=== PATIENT | female | born 1970 | race Caucasian/White ===

== ENCOUNTER 2016-04-09 03:25 | Emergency (ER) ==
--- NOTE | 2016-04-09 03:34 | ED.PDOC ---
General ED Provider: Dr. CRISTINO AYERS Chief Complaint: Shoulder Pain/Injury Stated Complaint: Patient states she woke up with left shouler pain this morning. Has not taken any medication for the pain. states she cannot afford Tylenol but admits to smoking. Time Seen by Physician: 03:42 Information Source: Patient Exam Limitations: No limitations Nursing and Triage Documentation Reviewed and Agree: Yes Musculoskeletal Complaint Exam - Shoulder Pain Complaint/Exam Mechanism of Injury: Reports: No known trauma Onset/Duration: 1 day Symptoms Are: Still present Timing: Intermittent Initial Severity: Mild Current Severity: Mild Location: Reports: Diffuse Character: Reports: Dull, Aching Alleviating: Reports: Rest Aggravating: Reports: Movement Associated Signs and Symptoms: Denies: Swelling, Redness, Bruising, Fever, Weakness, Numbness, Tingling Non-Orthopedic Risk Factors: Reports: None DVT Risk Factors: Reports: None Septic Arthritis Risk Factors: Reports: None Related Surgical History: Reports: None Shoulder Findings: Absent: Swelling, Ecchymosis, Abnormal contour, Rotation, Ligamentous instability, Laceration, Erythema, Warmth, Blisters, Other joint pain, Foreign body, Adson's Sign Tenderness: Present: Rotator cuff muscles. Absent: Clavicle Limited Range of Motion: Absent: Abduction, Adduction, Flexion, Extension, Internal rotation, External rotation, Rotator cuff muscles, Rotator cuff insertion Differential Diagnoses: Sprain, Strain Review of Systems - Review Of Systems Constitutional: Reports: No symptoms Eyes: Reports: No symptoms Ears, Nose, Mouth, Throat: Reports: No symptoms Respiratory: Reports: No symptoms Cardiac: Reports: No symptoms GI: Reports: No symptoms : Reports: No symptoms Musculoskeletal: Reports: Joint pain (shoulder ) Skin: Reports: No symptoms Neurological: Reports: No symptoms Endocrine: Reports: No symptoms Hematologic/Lymphatic: Reports: No symptoms All Other Systems: Reviewed and Negative Past Medical History - Past Medical History Previously Healthy: No Endocrine: Reports: None Cardiovascular: Reports: CAD, AR, Hypertension (Uncontrolled ), CHF Respiratory: Reports: COPD, Asthma, Pneumonia Hematological: Reports: Anemia Gastrointestinal: Reports: PUD, GERD Genitourinary: Reports: Kidney stones, CKD Neuro/Psych: Reports: TIA, 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 Denies: Hysterectomy (D&C) - Family History Family History: Reports: Unknown - Social History Smoking Status: Current every day smoker Hx Substance Use: Yes (alcohol) Alcohol Screening: None Physical Exam - Physical Exam Appearance: Well-appearing, No pain distress Neck: Supple Respiratory: Airway patent, Breath sounds clear, Breath sounds equal, Respirations nonlabored Cardiovascular: RRR, Pulses normal, No rub, No murmur GI/: Soft, Nontender, No masses, Bowel sounds normal, No Organomegaly Musculoskeletal: Normal strength, ROM intact, No edema, No calf tenderness Skin: Warm, Dry, Normal color Neurological: Sensation intact, Motor intact Critical Care Note - Critical Care Note Total Time (mins): 0 Course - Course Vital Signs: Temp Pulse Resp BP Pulse Ox 04/09/16 03:33 98.7 F 80 18 175/112 H 99 Departure - Departure Time of Disposition: 03:46 Disposition: HOME SELF-CARE Discharge Problem: Shoulder strain Instructions: Rotator Cuff Injury (ED) Condition: Fair Pt referred to PMD for follow-up: Yes Additional Instructions: Take over the counter Tylenol as needed for pain Follow up wth PCP in 2 days Allergies/Adverse Reactions: Allergies aspirin Adverse Reaction (Verified 04/09/16 03:41) Penicillins Adverse Reaction (Verified 04/09/16 03:41) Home Medications: Ambulatory Orders Carvedilol [Coreg] 25 mg PO DAILY 01/29/15 Calcium Acetate 667 mg PO DIRECTED 02/19/15 Hydralazine HCl 25 mg PO Q8H 03/27/15 Clonidine HCl 0.2 mg PO BID 09/14/15 Amlodipine Besylate 10 mg PO DAILY 10/16/15 Ranitidine HCl [Zantac] 150 mg PO BIDAC 11/03/15 Cholecalciferol (Vitamin D3) [Vitamin D3] 2,000 unit PO DAILY 12/03/15 Acetaminophen [Tylenol Arthritis] 650 mg PO Q4-6H PRN #100 tablet.er 12/04/15 Pantoprazole Sodium [Protonix] 40 mg PO DAILY #30 tablet.dr 02/29/16 Albuterol Sulfate [Proair Hfa] 2 puff IH Q6H PRN #1 inhaler 03/04/16 Disposition Discussed With: Patient
[2016-04-09 03:39] VITALS: BP 175/112; TEMP 98.7; BMI 22.8
== END 2016-04-09 03:55 | disposition home or self-care (01) ==
LOC: ED 03:25
DX: S46.012A Strain of muscle(s) and tendon(s) of the rotator cuff of left shoulder, initial encounter (principal); I10 Essential (primary) hypertension; F17.210 Nicotine dependence, cigarettes, uncomplicated
CPT/HCPCS: 99283

== ENCOUNTER 2016-04-11 22:15 | Outpatient (CLI) | END 2016-04-11 22:16 | disposition home or self-care (01) | LOC: AMBL 22:15 | PROVIDERS: ATTEND Emergency Medicine | DX: R07.9 Chest pain, unspecified (principal); R06.00 Dyspnea, unspecified; J18.9 Pneumonia, unspecified organism ==

== ENCOUNTER 2016-04-15 20:27 | Emergency (ER) ==
[2016-04-15 20:33] VITALS: BP 138/97; TEMP 97.3; BMI 23.4
--- NOTE | 2016-04-15 20:58 | ED.PDOC ---
General ED Provider: Dr. INDIGO NICHOLSON-ER Chief Complaint: Extremity Swelling/Pain Stated Complaint: i had a heart cath 3 days ago--its hurting and swelling and going down my leg Time Seen by Physician: 20:56 Mode of Arrival: Walk-In Information Source: Patient Exam Limitations: No limitations Nursing and Triage Documentation Reviewed and Agree: Yes Musculoskeletal Complaint Exam - Lower Extremity Complaint/Exam Location of Pain: Reports: Right, Thigh Mechanism of Injury: Reports: No known trauma, Other (cardiac cath) Onset/Duration: 24hrsw Symptoms Are: Still present Onset of Pain: Reports: Immediate Initial Severity: Mild Current Severity: Mild Location: Reports: Discrete (right thigh) Character: Reports: Dull, Aching, Throbbing Alleviating: Reports: None Aggravating: Reports: Movement, Weight bearing, Prolonged standing Able to Bear Weight: Yes Associated Signs and Symptoms: Reports: Swelling, Bruising. Denies: Redness, Fever, Weakness, Numbness, Tingling DVT Risk Factors: Reports: Smoking, Recent surgery Septic Arthritis Risk Factors: Reports: None Related Surgical History: Reports: None Lower Extremity Findings: Present: Swelling, Ecchymosis, Tenderness NV Bundle Intact Distal to Injury: Yes Compartment Syndrome Risk Factors: Present: Pain. Absent: Paralysis, Pallor, Pulselessness, Paresthesias Justine's Sign Present: No Differential Diagnoses: Other Review of Systems - Review Of Systems Constitutional: Reports: No symptoms Eyes: Reports: No symptoms Ears, Nose, Mouth, Throat: Reports: No symptoms Respiratory: Reports: No symptoms Cardiac: Reports: No symptoms GI: Reports: No symptoms : Reports: No symptoms Musculoskeletal: Reports: Muscle pain Skin: Reports: No symptoms Neurological: Reports: No symptoms Endocrine: Reports: No symptoms Hematologic/Lymphatic: Reports: No symptoms All Other Systems: Reviewed and Negative Past Medical History - Past Medical History Previously Healthy: No Endocrine: Reports: None Cardiovascular: Reports: CAD, NV, Hypertension (Uncontrolled ), CHF Respiratory: Reports: COPD, Asthma, Pneumonia Hematological: Reports: Anemia Gastrointestinal: Reports: PUD, GERD Genitourinary: Reports: Kidney stones, CKD Neuro/Psych: Reports: TIA, 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 Denies: Hysterectomy (D&C) - Family History Family History: Reports: Unknown - Social History Smoking Status: Current every day smoker Hx Substance Use: Yes (alcohol) Alcohol Screening: None Lives: With family - Immunizations Tetanus Shot up to Date: Yes Physical Exam - Physical Exam Appearance: Well-appearing Pain Distress: Mild Eyes: JENY ENT: Ears normal, Nose normal, Oropharynx normal Neck: Supple Respiratory: Airway patent, Breath sounds clear, Breath sounds equal, Respirations nonlabored Cardiovascular: RRR, Pulses normal, No rub, No murmur GI/: Soft, Nontender, No masses, Bowel sounds normal, No Organomegaly Musculoskeletal: Limited ROM Skin: Warm, Dry, Normal color Neurological: Sensation intact Psychiatric: Affect appropriate, Mood appropriate Physician Notification - Case Discussed Physician Notified: dr gatica Time of Notification: 20:58 Critical Care Note - Critical Care Note Total Time (mins): 0 Course - Course Orders, Labs, Meds: we tried to send her to [facility] [place] for u/s but she refused...she decided to leave [facility] Vital Signs: Temp Pulse Resp BP Pulse Ox 04/15/16 20:28 97.3 F L 89 20 138/97 H 98 Departure - Departure Time of Disposition: 20:58 Disposition: AMA Discharge Problem: Right groin pain Instructions: Wound Healing and Your Diet (ED) Condition: Stable Pt referred to PMD for follow-up: Yes Allergies/Adverse Reactions: Allergies aspirin Adverse Reaction (Verified 04/09/16 03:41) Penicillins Adverse Reaction (Verified 04/09/16 03:41) Home Medications: Ambulatory Orders Carvedilol [Coreg] 25 mg PO DAILY 01/29/15 Calcium Acetate 667 mg PO DIRECTED 02/19/15 Hydralazine HCl 25 mg PO Q8H 03/27/15 Clonidine HCl 0.2 mg PO BID 09/14/15 Amlodipine Besylate 10 mg PO DAILY 10/16/15 Ranitidine HCl [Zantac] 150 mg PO BIDAC 11/03/15 Cholecalciferol (Vitamin D3) [Vitamin D3] 2,000 unit PO DAILY 12/03/15 Acetaminophen [Tylenol Arthritis] 650 mg PO Q4-6H PRN #100 tablet.er 12/04/15 Pantoprazole Sodium [Protonix] 40 mg PO DAILY #30 tablet. 02/29/16 Albuterol Sulfate [Proair Hfa] 2 puff IH Q6H PRN #1 inhaler 03/04/16 Clopidogrel Bisulfate [Plavix] 75 mg PO DAILY 04/15/16 Nifedipine [Procardia Xl] 30 mg PO DAILY 04/15/16 Transfer Form Completed: Yes Disposition Discussed With: Patient
== END 2016-04-15 22:01 | disposition left against medical advice (07) ==
LOC: ED 20:27
DX: M79.651 Pain in right thigh (principal); Z53.21 Procedure and treatment not carried out due to patient leaving prior to being seen by health care provider
CPT/HCPCS: 99284

== ENCOUNTER 2016-04-19 23:13 | Emergency (ER) ==
[2016-04-19 23:21] VITALS: TEMP 97.6; BMI 22.6
[2016-04-19] MEDS ORDERED: TRANDATE IVP STA (23:22)
[2016-04-19] MEDS ORDERED: DUONEB NEB STA (23:22)
[2016-04-19 23:29] LABS: BASOPHILS # (AUTO) 0.1 K/uL (0-0.2); BASOPHILS % (AUTO) 0.8 % (0.0-3.0); EOSINOPHILS # (AUTO) 0.3 K/ul (0.0-0.7); EOSINOPHILS % (AUTO) 3.3 % (0.0-7.0); HEMATOCRIT 41.8 % (37.0-47.0); HEMOGLOBIN 13.2 g/dl (12.0-16.0); IMMATURE GRANULOCYTE % (AUTO) 0.4 % (0.0-5.0); LYMPHOCYTES # (AUTO) 1.1 K/uL (0.60-3.4); MEAN CORPUSCULAR HEMOGLOBIN 30.6 pg (27.0-31.0); MEAN CORPUSCULAR HGB CONC 31.6 (31.8-35.4); MEAN CORPUSCULAR VOLUME 96.8 fl (81.0-99.0); MONOCYTES # (AUTO) 0.8 K/uL (0.4-2.0); MONOCYTES % (AUTO) 10.2 (0-10); NEUTROPHILS # (AUTO) 5.6 K/ul (2.0-6.9); NEUTROPHILS % (AUTO) 71.3; PLATELET COUNT 236 10^3/uL (140-440); RED BLOOD COUNT 4.32 10^6/ul (4.20-5.40); WHITE BLOOD COUNT 7.84 K/ul (4.6-10.2)
[2016-04-19] MEDS ORDERED: SOLU-MEDROL 125 MG IVP STA (23:29)
--- NOTE | 2016-04-19 23:29 | ED.PDOC ---
General ED Provider: Dr. CRISTINO AYERS Chief Complaint: Shortness of Air Stated Complaint: Patient is a 45 year old female who comes to the Er with Shortness of breath that started 30 min ago after getting home from [facility]. States she had an MS recently and had to have intervention by casino host and some stents placed. States she is having chest pain with the shortness of breath. Time Seen by Physician: 23:18 Mode of Arrival: Wheelchair Information Source: Patient Exam Limitations: No limitations, Clinical condition Nursing and Triage Documentation Reviewed and Agree: Yes Respiratory Complaint Exam - Shortness of Air Complaint/Exam Timing: Constant Aggravating: Reports: Smoke exposure Associated Signs and Symptoms: Reports: Wheezing, Chest pain, Rapid breathing, Labored breathing. Denies: Cough, Chest pain with cough, Fever, Chills, Diaphoresis, Nasal congestion, Dizziness, Calf pain, Calf swelling, Edema, Decreased intake Pulmonary Embolism Risk Factors: Reports: Smoking Cardiac Risk Factors: Reports: Prior MS, CAD, Smoking, Hypertension Home Oxygen Use: Yes Recent Stress Test: No (but had a cath recently at [facility] ) Recent Echo/LV Function: No Respiratory Distress: Severe Subcutaneous Emphysema: No Retractions: Not Present Diminished Breath Sounds: Yes Unable to Speak Full Sentences: No Fatigue: No Leg Swelling: No Justine's Sign Present: No Grunting Respirations: No Kussmaul Respirations: No Differential Diagnoses: Asthma, CHF, Pulmonary Edema, COPD Exacerbation, MS, Pneumonia Quality Indicators for AMI: Advised to stop smoking Quality Indicator For Non-Traumatic Chest Pain/Syncope: EKG Performed Review of Systems - Review Of Systems Constitutional: Reports: No symptoms Eyes: Reports: No symptoms Ears, Nose, Mouth, Throat: Reports: No symptoms Respiratory: Reports: Cough, Short of air, Wheezing Cardiac: Reports: Chest pain GI: Reports: No symptoms : Reports: No symptoms Musculoskeletal: Reports: Muscle pain Skin: Reports: Bruising Neurological: Reports: Anxiety Endocrine: Denies: Excessive sweating Hematologic/Lymphatic: Reports: No symptoms All Other Systems: Reviewed and Negative Past Medical History - Past Medical History Previously Healthy: No Endocrine: Reports: None Cardiovascular: Reports: CAD, MS, Hypertension (Uncontrolled ), CHF Respiratory: Reports: COPD, Asthma, Pneumonia Hematological: Reports: Anemia Gastrointestinal: Reports: PUD, GERD Genitourinary: Reports: Kidney stones, CKD Neuro/Psych: Reports: TIA, 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 Denies: Hysterectomy (D&C) - Family History Family History: Reports: Unknown - Social History Smoking Status: Current every day smoker Hx Substance Use: Yes (alcohol) Alcohol Screening: None - Immunizations Tetanus Shot up to Date: Yes Physical Exam - Physical Exam Appearance: Ill-appearing, Thin Ill-appearing: Severe Pain Distress: Severe Eyes: JENY, EOMI, Conjunctiva clear ENT: Ears normal, Nose normal, Oropharynx normal Neck: Supple Respiratory: Breath sounds diminished, Wheezes Cardiovascular: Tachycardia GI/: Soft, Nontender Musculoskeletal: Normal strength, ROM intact, No edema, No calf tenderness Skin: Warm, Dry Neurological: Motor intact, Alert, Oriented Psychiatric: Anxious Interpretation - Radiology Interpretation Radiology Interpretation By: ED Physician Radiology Results: Positive (Pulmonary Vascular conjestion) Exam Interpreted: Portable CXR - Se[employer] Rate: Tachy Rhythm: Sinus Ectopy: None - EKG Interpretation Time of EKG #1: 23:43 Rate: Tachy Rhythm: Sinus Ectopy: None [place]: NL ST Segment: Normal Interpretation: Left Atrial Enlargement, prolonged QT Physician Notification - Case Discussed Physician Notified: Dr Kaur Time of Notification: 00:45 (ok to transfer to [facility]) Critical Care Note - Critical Care Note Total Time (mins): 35 Course - Course Hematology/Chemistry: 04/19/16 00:25 04/19/16 00:25 Orders, Labs, Meds: Lab Review 04/19/16 04/19/16 00:25 23:21 WBC 7.84 RBC 4.32 Hgb 13.2 Hct 41.8 MCV 96.8 MCH 30.6 MCHC 31.6 L RDW Coeff of Gus 15.6 H Plt Count 236 Immature Gran % (Auto) 0.4 Neut % (Auto) 71.3 Lymph % (Auto) 14.0 [place] % (Auto) 10.2 H Eos % (Auto) 3.3 Baso % (Auto) 0.8 Immature Gran # (Auto) 0.0 Neut # 5.6 Lymph # 1.1 [place] # 0.8 Eos # 0.3 Baso # 0.1 Puncture Site Lr O2 Saturation 82.0 L ABG pH 7.444 ABG pCO2 40.8 ABG pO2 44.0 L* ABG HCO3 27.9 H ABG Total CO2 29 H ABG Base Excess 4 H Mike Test + FiO2 % 21.0 Sodium 130 L Potassium 4.9 Chloride 89 L Carbon Dioxide 26 Anion Gap 19.9 BUN 21 H Creatinine 6.11 H* Estimated GFR (MDRD) 7.00 BUN/Creatinine Ratio 3.43 Glucose 106 Calcium 9.6 Total Bilirubin 0.71 AST 17 ALT 16 Alkaline Phosphatase 86 Total Creatine Kinase 77 Troponin I 1.4420 H* B-Natriuretic Peptide 1718 H Total Protein 7.4 Albumin 4.0 Globulin 3.4 Albumin/Globulin Ratio 1.18 Orders Category Date Time Status ABG DRAW REQUEST Stat CARDIO 04/19/16 23:21 Completed EKG-(ED ONLY) Stat CARDIO 04/19/16 23:20 Completed NEBULIZER TREATMENT Stat CARDIO 04/19/16 23:22 Completed ABG Stat LAB 04/19/16 23:21 Completed B-TYPE NATRIURETIC PEPTIDE Stat LAB 04/19/16 00:25 Completed CBC W/ AUTO DIFF Stat LAB 04/19/16 00:25 Completed COMPREHENSIVE METABOLIC PANEL Stat LAB 04/19/16 00:25 Completed CREATINE KINASE Stat LAB 04/19/16 00:25 Completed TROPONIN I Stat LAB 04/19/16 00:25 Completed Clopidogrel Bisulfate [Plavix] MEDS 04/20/16 00:49 Discontinued 75 mg PO ONCE STA Enoxaparin Sodium [Lovenox] MEDS 04/20/16 00:50 Discontinued 40 mg SUBCUT ONCE STA Hydromorphone HCl [Dilaudid 1 mg/ml Syringe] MEDS 04/20/16 01:04 Discontinued 1 mg IVP ONCE STA Ipratropium/Albuterol Neb [Duoneb] MEDS 04/19/16 23:22 Discontinued 1 vial NEB ONCE STA Labetalol HCl [Trandate] MEDS 04/19/16 23:22 Discontinued 20 mg IVP ONCE STA Methylprednisolone Sod Succ/Pf [Solu-Medrol 125 mg] MEDS 04/19/16 23:29 Discontinued 125 mg IVP ONCE STA Morphine Sulfate [Morphine 2 mg/ml Syringe] MEDS 04/19/16 23:56 Discontinued 2 mg IVP ONCE STA Nitroglycerin [Nitrostat] MEDS 04/20/16 00:47 Discontinued 0.4 mg SL ONCE STA Ondansetron HCl/Pf [Zofran 4 mg/2 ml] MEDS 04/19/16 23:56 Discontinued 4 mg IVP ONCE STA CHEST, 1V AP ONLY Stat RADS 04/19/16 23:20 Completed Medications Discontinued Medications Generic Name Dose Route Start Last Admin Trade Name Freq PRN Reason Stop Dose Admin Albuterol/Ipratropium 1 vial 04/19/16 23:22 04/19/16 23:51 Duoneb NEB 04/19/16 23:23 1 vial ONCE STA Administration Clopidogrel Bisulfate 75 mg 04/20/16 00:49 04/20/16 00:55 Plavix PO 04/20/16 00:50 75 mg ONCE STA Administration Enoxaparin Sodium 40 mg 04/20/16 00:50 04/20/16 00:54 Lovenox SUBCUT 04/20/16 00:51 40 mg ONCE STA Administration Hydromorphone HCl 1 mg 04/20/16 01:04 04/20/16 01:09 Dilaudid 1 Mg/Ml Syringe IVP 04/20/16 01:05 1 mg ONCE STA Administration Labetalol HCl 20 mg 04/19/16 23:22 04/20/16 00:08 Trandate IVP 04/19/16 23:23 20 mg ONCE STA Administration Methylprednisolone Sodium Succinate 125 mg 04/19/16 23:29 04/20/16 00:08 Solu-Medrol 125 Mg IVP 04/19/16 23:30 125 mg ONCE STA Administration Morphine Sulfate 2 mg 04/19/16 23:56 04/20/16 00:23 Morphine 2 Mg/Ml Syringe IVP 04/19/16 23:57 2 mg ONCE STA Administration Nitroglycerin 0.4 mg 04/20/16 00:47 04/20/16 00:54 Nitrostat SL 04/20/16 00:48 0.4 mg ONCE STA Administration Ondansetron HCl 4 mg 04/19/16 23:56 04/20/16 00:23 Zofran 4 Mg/2 Ml IVP 04/19/16 23:57 4 mg ONCE STA Administration Vital Signs: Temp Pulse Resp BP Pulse Ox 04/20/16 00:48 176/108 H 04/19/16 23:14 97.6 F 110 H 28 H 180/126 H 80 L Departure - Departure Time of Disposition: 00:53 Disposition: TSF SHORT-TRM HOSP Discharge Problem: Non-ST elevated myocardial infarction (non-STEMI) Acute bronchitis Qualifiers: Bronchitis organism: other organism Qualifier Code: (J20.8) Acute bronchitis due to other specified organisms Condition: Fair Pt referred to PMD for follow-up: No (transfered ) Allergies/Adverse Reactions: Allergies aspirin Adverse Reaction (Verified 04/19/16 23:21) Penicillins Adverse Reaction (Verified 04/19/16 23:21) Home Medications: Ambulatory Orders Carvedilol [Coreg] 25 mg PO DAILY 01/29/15 Calcium Acetate 667 mg PO DIRECTED 02/19/15 Hydralazine HCl 25 mg PO Q8H 03/27/15 Clonidine HCl 0.2 mg PO BID 09/14/15 Amlodipine Besylate 10 mg PO DAILY 10/16/15 Ranitidine HCl [Zantac] 150 mg PO BIDAC 11/03/15 Cholecalciferol (Vitamin D3) [Vitamin D3] 2,000 unit PO DAILY 12/03/15 Acetaminophen [Tylenol Arthritis] 650 mg PO Q4-6H PRN #100 tablet.er 12/04/15 Pantoprazole Sodium [Protonix] 40 mg PO DAILY #30 tablet. 02/29/16 Albuterol Sulfate [Proair Hfa] 2 puff IH Q6H PRN #1 inhaler 03/04/16 Clopidogrel Bisulfate [Plavix] 75 mg PO DAILY 04/15/16 Nifedipine [Procardia Xl] 30 mg PO DAILY 04/15/16 Disposition Discussed With: Patient
[2016-04-19] MEDS ORDERED: ZOFRAN 4 MG/2 ML IVP STA (23:56)
[2016-04-19] MEDS ORDERED: MORPHINE 2 MG/ML SYRINGE IVP STA (23:56)
[2016-04-20 00:12] LABS: ALBUMIN/GLOBULIN RATIO 1.18; ANION GAP 19.9; BILIRUBIN,TOTAL 0.71 mg/dL (0.00-1.20); BUN/CREATININE RATIO 3.43; CALCIUM 9.6 mg/dL (8.2-10.2); POTASSIUM 4.9 mmol/L (3.5-5.10); TOTAL PROTEIN 7.4 g/dL (6.4-8.2)
[2016-04-20 00:14] LABS: CREATININE 6.11 mg/dL (0.60-1.30); TROPONIN I 1.442 ng/ml (0.0000-0.4000)
[2016-04-20 00:31] LABS: ABG PH 7.444 (7.35-7.45)
[2016-04-20 00:32] LABS: ABG PCO2 40.8 mmHg (35-45)
[2016-04-20 00:33] LABS: ABG BASE EXCESS 4 (-2.0-2.0); ABG HCO3 27.9 (22.0-26.0); ABG TCO2 29 (22.0-28.0)
[2016-04-20] MEDS ORDERED: NITROSTAT SL STA (00:47)
[2016-04-20 00:49] VITALS: BP 176/108
[2016-04-20] MEDS ORDERED: PLAVIX PO STA (00:49)
[2016-04-20] MEDS ORDERED: LOVENOX SUBCUT STA (00:50)
[2016-04-20] MEDS ORDERED: DILAUDID 1 MG/ML SYRINGE IVP STA (01:04)
--- NOTE | 2016-04-20 05:47 | DI ---
EXAM: Chest, single view, 04/19/2016 HISTORY: Chest pain COMPARISON: 04/03/2016 FINDINGS / IMPRESSION: Cardiomediastinal contours appear stable. Right central venous catheter sta ble in position. This appears to extend below the right atrium and may extend inferiorly to the leve l of the inferior vena cava. Interstitial opacities have worsened since the prior study. This likely relates to atelectasis, pul monary edema and/or pneumonia. This is most severe within the dependent aspect of both lungs.
== END 2016-04-20 01:10 | disposition short-term general hospital (02) ==
LOC: ED 23:13
DX: I21.4 Non-ST elevation (NSTEMI) myocardial infarction (principal); J20.9 Acute bronchitis, unspecified; I10 Essential (primary) hypertension; I25.2 Old myocardial infarction; F17.210 Nicotine dependence, cigarettes, uncomplicated; I25.10 Atherosclerotic heart disease of native coronary artery without angina pectoris; I50.9 Heart failure, unspecified; J44.9 Chronic obstructive pulmonary disease, unspecified; N18.9 Chronic kidney disease, unspecified; D63.1 Anemia in chronic kidney disease; Z99.2 Dependence on renal dialysis; Z79.899 Other long term (current) drug therapy; Z95.5 Presence of coronary angioplasty implant and graft; Z86.73 Personal history of transient ischemic attack (TIA), and cerebral infarction without residual deficits; Z87.19 Personal history of other diseases of the digestive system; Z98.890 Other specified postprocedural states
CPT/HCPCS: 36415; 80053; 82550; 82803; 83880; 84484; 85025; 93005; 93010; 94640; 96372; 96374; 96375; 99285

== ENCOUNTER 2016-04-20 01:20 | Outpatient (CLI) ==
[2016-04-19 23:21] VITALS: BMI 22.6
== END 2016-04-20 01:21 | disposition home or self-care (01) ==
LOC: AMBL 01:20
PROVIDERS: ATTEND Internal Medicine Geriatric Medicine
DX: R07.9 Chest pain, unspecified (principal); R79.89 Other specified abnormal findings of blood chemistry; Z95.5 Presence of coronary angioplasty implant and graft; N18.9 Chronic kidney disease, unspecified; Z99.2 Dependence on renal dialysis

== ENCOUNTER 2016-04-22 20:31 | Outpatient (CLI) | END 2016-04-22 20:32 | disposition home or self-care (01) | LOC: AMBL 20:31 | PROVIDERS: ATTEND Family Medicine | DX: R07.9 Chest pain, unspecified (principal); R10.9 Unspecified abdominal pain; R00.0 Tachycardia, unspecified ==

== ENCOUNTER 2016-04-28 00:11 | Emergency (ER) ==
[2016-04-28 00:21] VITALS: BP 112/78; TEMP 97.8; BMI 21.8
[2016-04-28] MEDS ORDERED: NORCO 7.5-325 PO STA (00:41)
--- NOTE | 2016-04-28 00:45 | ED.PDOC ---
General ED Provider: Dr. INDIGO NICHOLSON-ER Chief Complaint: Back Pain Stated Complaint: my lower back is acting up.. Time Seen by Physician: 00:44 Mode of Arrival: Walk-In Information Source: Patient Exam Limitations: No limitations Nursing and Triage Documentation Reviewed and Agree: Yes Musculoskeletal Complaint Exam - Back Pain Complaint/Exam Mechanism of Injury: Reports: No known trauma Onset/Duration: several mos Symptoms Are: Still present Timing: Constant Episodes Lasting: Seconds Current Severity: Mild Location: Reports: Discrete Character: Reports: Dull, Aching, Throbbing Aggravating: Reports: Movements, Lifting, Bending, Walking Alleviating: Reports: None Associated Signs and Symptoms: Denies: Swelling, Redness, Bruising, Fever, Weakness, Numbness, Tingling, Abdominal pain, Flank pain, Bladder incontinence, Bowel incontinence, Weight loss, Pain with weight bearing Related History: Reports: Similar episode TAD Risk Factors: Reports: Hypertension, Smoking AAA Risk Factors: Reports: Smoking, Hypertension Cauda Equina Risk Factors: Reports: None Epidural Abcess Risk Factors: Reports: None Related Surgical History: Reports: None Focal Tenderness: Yes Paraspinal Muscle Tenderness: Yes Paraspinal Muscle Spasm: No Scoliosis: No Lordosis: No Kyphosis: No SLR Test: Right Negative, Left Negative Hip Motion Testing Pain: Right Negative, Left Negative Focal Weakness: Present: None Focal Sensory Loss: Present: None Gait: Present: Normal Differential Diagnoses: Herniated Disk, Strain, Sprain Review of Systems - Review Of Systems Constitutional: Reports: No symptoms Eyes: Reports: No symptoms Ears, Nose, Mouth, Throat: Reports: No symptoms Respiratory: Reports: No symptoms, Other Cardiac: Reports: No symptoms GI: Reports: No symptoms : Reports: No symptoms Musculoskeletal: Reports: Back pain Skin: Reports: No symptoms Neurological: Reports: No symptoms Endocrine: Reports: No symptoms Hematologic/Lymphatic: Reports: No symptoms All Other Systems: Reviewed and Negative Past Medical History - Past Medical History Previously Healthy: No Endocrine: Reports: None Cardiovascular: Reports: CAD, [place], Hypertension (Uncontrolled ), CHF Respiratory: Reports: COPD, Asthma, Pneumonia Hematological: Reports: Anemia Gastrointestinal: Reports: PUD, GERD Genitourinary: Reports: Kidney stones, CKD Neuro/Psych: Reports: TIA, 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 Denies: Hysterectomy (D&C) - Family History Family History: Reports: Unknown - Social History Smoking Status: Current every day smoker Hx Substance Use: Yes (alcohol) Alcohol Screening: None Lives: With family - Immunizations Tetanus Shot up to Date: Yes Physical Exam - Physical Exam Appearance: Well-appearing Eyes: JENY, EOMI, Conjunctiva clear ENT: Ears normal, Nose normal, Oropharynx normal Neck: Supple Respiratory: Airway patent, Breath sounds clear, Breath sounds equal, Respirations nonlabored Cardiovascular: RRR, Pulses normal, No rub, No murmur GI/: Soft Musculoskeletal: Limited ROM Skin: Warm, Dry, Normal color Neurological: Sensation intact, Motor intact, Reflexes intact, Cranial nerves intact, Alert, Oriented Psychiatric: Affect appropriate, Mood appropriate Critical Care Note - Critical Care Note Total Time (mins): 0 Course - Course Orders, Labs, Meds: Orders Category Date Time Status Hydrocodone Bit/Acetaminophen [[place] 7.5-325] MEDS 04/28/16 00:41 Discontinued 1 tab PO ONCE STA Medications Discontinued Medications Generic Name Dose Route Start Last Admin Trade Name Freq PRN Reason Stop Dose Admin Acetaminophen/Hydrocodone Bitart 1 tab 04/28/16 00:41 [place] 7.5-325 PO 04/28/16 00:42 ONCE STA Vital Signs: Temp Pulse Resp BP Pulse Ox 04/28/16 00:13 97.8 F 70 20 112/78 99 Departure - Departure Time of Disposition: 00:45 Disposition: HOME SELF-CARE Discharge Problem: Backache Instructions: Chronic Back Pain (ED) Condition: Stable Pt referred to PMD for follow-up: Yes Additional Instructions: f/u with pcp Allergies/Adverse Reactions: Allergies aspirin Adverse Reaction (Verified 04/28/16 00:23) Penicillins Adverse Reaction (Verified 04/28/16 00:23) Home Medications: Ambulatory Orders Carvedilol [Coreg] 25 mg PO BID 01/29/15 Calcium Acetate 667 mg PO DIRECTED 02/19/15 Hydralazine HCl 50 mg PO TID 03/27/15 Clonidine HCl 0.2 mg PO TID 09/14/15 Amlodipine Besylate 10 mg PO DAILY 10/16/15 Cholecalciferol (Vitamin D3) [Vitamin D3] 2,000 unit PO DAILY 12/03/15 Acetaminophen [Tylenol Arthritis] 650 mg PO Q4-6H PRN #100 tablet.er 12/04/15 Albuterol Sulfate [Proair Hfa] 2 puff IH Q6H PRN #1 inhaler 03/04/16 Clopidogrel Bisulfate [Plavix] 75 mg PO DAILY 04/15/16 Nifedipine [Procardia Xl] 30 mg PO DAILY 04/15/16 Atorvastatin Calcium 40 mg PO BEDTIME 04/28/16 Calcium Carbonate/Vitamin D3 [Calcium 500 + Vit D3 400 Tab] 1 each PO DAILY Nitroglycerin [Nitrostat] 0.4 mg SL Q5MIN X 3 DOSES PRN 04/28/16 Sevelamer HCl [Renagel] 1,600 mg PO QID 04/28/16 Disposition Discussed With: Patient
== END 2016-04-28 01:06 | disposition home or self-care (01) ==
LOC: ED 00:11
DX: M54.5 Low back pain (principal); I10 Essential (primary) hypertension; F17.210 Nicotine dependence, cigarettes, uncomplicated
CPT/HCPCS: 99282; 99283

== ENCOUNTER 2016-04-29 02:15 | Emergency (ER) ==
[2016-04-29 02:22] VITALS: BP 126/82; TEMP 97.2; BMI 23.4
[2016-04-29] MEDS ORDERED: NORCO 5-325 PO STA (03:08)
--- NOTE | 2016-04-29 04:21 | ED.PDOC ---
General ED Provider: Dr. INDIGO NICHOLSON-ER Chief Complaint: Back Pain Stated Complaint: my back hurts Time Seen by Physician: 02:20 Mode of Arrival: Walk-In Information Source: Patient Exam Limitations: No limitations Nursing and Triage Documentation Reviewed and Agree: Yes Musculoskeletal Complaint Exam - Back Pain Complaint/Exam Mechanism of Injury: Reports: No known trauma Onset/Duration: sevealk mos Symptoms Are: Still present Timing: Constant Episodes Lasting: Weeks Initial Severity: Mild Current Severity: Mild Location: Reports: Discrete (lumbar spine) Character: Reports: Dull, Aching Aggravating: Reports: Movements, Lifting, Bending, Walking Alleviating: Reports: None Associated Signs and Symptoms: Denies: Swelling, Redness, Bruising, Fever, Weakness, Numbness, Tingling, Abdominal pain, Flank pain, Bladder incontinence, Bowel incontinence, Weight loss, Pain with weight bearing Related History: Reports: Similar episode TAD Risk Factors: Reports: Hypertension, Smoking AAA Risk Factors: Reports: Smoking, Hypertension Cauda Equina Risk Factors: Reports: None Epidural Abcess Risk Factors: Reports: None Related Surgical History: Reports: None Focal Tenderness: Yes Paraspinal Muscle Tenderness: Yes Paraspinal Muscle Spasm: No Scoliosis: No Lordosis: No Kyphosis: No SLR Test: Right Negative, Left Negative Hip Motion Testing Pain: Right Negative, Left Negative Focal Weakness: Present: None Focal Sensory Loss: Present: None Gait: Present: Normal Differential Diagnoses: Herniated Disk Review of Systems - Review Of Systems Constitutional: Reports: No symptoms Eyes: Reports: No symptoms Ears, Nose, Mouth, Throat: Reports: No symptoms Respiratory: Reports: No symptoms Cardiac: Reports: No symptoms GI: Reports: No symptoms : Reports: No symptoms Musculoskeletal: Reports: Back pain Skin: Reports: No symptoms Neurological: Reports: No symptoms Endocrine: Reports: No symptoms Hematologic/Lymphatic: Reports: No symptoms All Other Systems: Reviewed and Negative Past Medical History - Past Medical History Previously Healthy: No Endocrine: Reports: None Cardiovascular: Reports: CAD, [place], Hypertension (Uncontrolled ), CHF Respiratory: Reports: COPD, Asthma, Pneumonia Hematological: Reports: Anemia Gastrointestinal: Reports: PUD, GERD Genitourinary: Reports: Kidney stones, CKD Neuro/Psych: Reports: TIA, 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 Denies: Hysterectomy (D&C) - Family History Family History: Reports: Unknown - Social History Smoking Status: Current every day smoker Hx Substance Use: Yes (alcohol) Alcohol Screening: None Lives: With family - Immunizations Tetanus Shot up to Date: Yes Physical Exam - Physical Exam Appearance: Well-appearing, No pain distress, Well-nourished Pain Distress: Mild Eyes: JENY, EOMI, Conjunctiva clear ENT: Ears normal, Nose normal, Oropharynx normal Neck: Supple Respiratory: Airway patent, Breath sounds clear, Breath sounds equal, Respirations nonlabored Cardiovascular: RRR, Pulses normal, No rub, No murmur GI/: Soft, Nontender, No masses, Bowel sounds normal, No Organomegaly Musculoskeletal: Normal strength, ROM intact, No edema, No calf tenderness Skin: Warm, Dry, Normal color Neurological: Sensation intact, Motor intact, Reflexes intact, Cranial nerves intact, Alert, Oriented Psychiatric: Affect appropriate, Mood appropriate Critical Care Note - Critical Care Note Total Time (mins): 0 Course - Course Orders, Labs, Meds: Orders Category Date Time Status Hydrocodone Bit/Acetaminophen [[place] 5-325] MEDS 04/29/16 03:08 Discontinued 1 tab PO ONCE STA Medications Discontinued Medications Generic Name Dose Route Start Last Admin Trade Name Jocelyn PRN Reason Stop Dose Admin Acetaminophen/Hydrocodone Bitart 1 tab 04/29/16 03:08 04/29/16 03:23 [place] 5-325 PO 04/29/16 03:09 1 tab ONCE STA Administration Vital Signs: Temp Pulse Resp BP Pulse Ox 04/29/16 02:15 97.2 F L 72 18 126/82 96 Departure - Departure Time of Disposition: 04:21 Disposition: HOME SELF-CARE Discharge Problem: Backache Instructions: Acute Low Back Pain (ED) Condition: Good Pt referred to PMD for follow-up: Yes Additional Instructions: f/u with pcp Allergies/Adverse Reactions: Allergies aspirin Adverse Reaction (Verified 04/29/16 02:21) Penicillins Adverse Reaction (Verified 04/29/16 02:21) Home Medications: Ambulatory Orders Carvedilol [Coreg] 25 mg PO BID 01/29/15 Calcium Acetate 667 mg PO DIRECTED 02/19/15 Hydralazine HCl 50 mg PO TID 03/27/15 Clonidine HCl 0.2 mg PO TID 09/14/15 Amlodipine Besylate 10 mg PO DAILY 10/16/15 Cholecalciferol (Vitamin D3) [Vitamin D3] 2,000 unit PO DAILY 12/03/15 Acetaminophen [Tylenol Arthritis] 650 mg PO Q4-6H PRN #100 tablet.er 12/04/15 Albuterol Sulfate [Proair Hfa] 2 puff IH Q6H PRN #1 inhaler 03/04/16 Clopidogrel Bisulfate [Plavix] 75 mg PO DAILY 04/15/16 Atorvastatin Calcium 40 mg PO BEDTIME 04/28/16 Calcium Carbonate/Vitamin D3 [Calcium 500 + Vit D3 400 Tab] 1 each PO DAILY Nitroglycerin [Nitrostat] 0.4 mg SL Q5MIN X 3 DOSES PRN 04/28/16 Sevelamer HCl [Renagel] 1,600 mg PO QID 04/28/16 Disposition Discussed With: Patient
== END 2016-04-29 04:39 | disposition home or self-care (01) ==
LOC: ED 02:15
DX: M54.5 Low back pain (principal); I10 Essential (primary) hypertension; F17.210 Nicotine dependence, cigarettes, uncomplicated; Z79.899 Other long term (current) drug therapy; M79.1 Myalgia
CPT/HCPCS: 36415; 80053; 81001; 85025; 87040; 87651; 87804; 87880; 99283

== ENCOUNTER 2016-04-29 22:12 | Emergency (ER) ==
[2016-04-29 22:17] VITALS: BP 146/90; TEMP 99.1; BMI 22.4
[2016-04-29] MEDS ORDERED: ULTRAM PO STA (22:32)
[2016-04-29 22:52] LABS: BASOPHILS # (AUTO) 0.1 K/uL (0-0.2); BASOPHILS % (AUTO) 1.6 % (0.0-3.0); EOSINOPHILS # (AUTO) 0.2 K/ul (0.0-0.7); EOSINOPHILS % (AUTO) 3.7 % (0.0-7.0); HEMATOCRIT 38.7 % (37.0-47.0); HEMOGLOBIN 12.1 g/dl (12.0-16.0); IMMATURE GRANULOCYTE % (AUTO) 0.2 % (0.0-5.0); LYMPHOCYTES # (AUTO) 0.8 K/uL (0.60-3.4); LYMPHOCYTES % (AUTO) 16.9 (10.0-50.0); MEAN CORPUSCULAR HEMOGLOBIN 30.3 pg (27.0-31.0); MEAN CORPUSCULAR HGB CONC 31.3 (31.8-35.4); MEAN CORPUSCULAR VOLUME 96.8 fl (81.0-99.0); MONOCYTES # (AUTO) 0.5 K/uL (0.4-2.0); MONOCYTES % (AUTO) 10.1 (0-10); NEUTROPHILS # (AUTO) 3.3 K/ul (2.0-6.9); NEUTROPHILS % (AUTO) 67.5; PLATELET COUNT 205 10^3/uL (140-440); WHITE BLOOD COUNT 4.86 K/ul (4.6-10.2)
[2016-04-29 23:20] LABS: ALBUMIN 4.1 g/dL (3.4-5.0); ALBUMIN/GLOBULIN RATIO 1.28; ANION GAP 21.7; BILIRUBIN,TOTAL 0.61 mg/dL (0.00-1.20); BUN/CREATININE RATIO 5.59; CALCIUM 11.7 mg/dL (8.2-10.2); POTASSIUM 5.7 mmol/L (3.5-5.10); TOTAL PROTEIN 7.3 g/dL (6.4-8.2)
[2016-04-29 23:21] LABS: BILIRUBIN,URINE Negative (NEGATIVE); KETONES,URINE Negative (NEGATIVE); LEUKOCYTE ESTERASE ,URINE Trace (NEGATIVE); NITRITE,URINE Negative (NEGATIVE); PH,URINE 8.5 (5-9); PROTEIN,URINE 2+ (NEGATIVE); URINE, BLOOD Trace-intact (NEGATIVE)
[2016-04-29 23:23] LABS: ADD URINE MICROSCOPIC YES
[2016-04-29 23:24] LABS: BACTERIA,URINE TRACE (NOT PRESENT)
[2016-04-29 23:24] LABS: CREATININE 8.04 mg/dL (0.60-1.30)
[2016-04-29 23:33] LABS: FLU INTERNAL QC INTERNAL QC VALID; RAPID FLU A NEGATIVE (NEGATIVE); RAPID FLU B NEGATIVE (NEGATIVE)
--- NOTE | 2016-04-29 23:50 | ED.PDOC ---
General ED Provider: Dr. INDIGO NICHOLSON-ER Chief Complaint: Non-specific Complaint Stated Complaint: im hurting all over Time Seen by Physician: 22:20 Mode of Arrival: Walk-In Information Source: Patient Exam Limitations: No limitations Nursing and Triage Documentation Reviewed and Agree: Yes Musculoskeletal Complaint Exam - Upper Extremity Complaint/Exam Mechanism of Injury: Reports: No known trauma Onset/Duration: several hours Symptoms Are: Still present Timing: Intermittent Episodes Lasting: Minutes Initial Severity: Mild Current Severity: Mild Location: Reports: Diffuse Character: Reports: Dull, Aching, Stiffness Aggravating: Reports: None Alleviating: Reports: None Related History: Reports: Similar episode Non-Orthopedic Risk Factors: Reports: None [place] Bundle Intact Distal to Injury: No Compartment Syndrome Risk Factors: Present: Pain Differential Diagnoses: Other Review of Systems - Review Of Systems Constitutional: Reports: No symptoms Eyes: Reports: No symptoms Ears, Nose, Mouth, Throat: Reports: No symptoms Respiratory: Reports: No symptoms Cardiac: Reports: No symptoms GI: Reports: No symptoms : Reports: No symptoms Musculoskeletal: Reports: Muscle pain, Muscle stiffness Skin: Reports: No symptoms Neurological: Reports: No symptoms Endocrine: Reports: No symptoms Hematologic/Lymphatic: Reports: No symptoms All Other Systems: Reviewed and Negative Past Medical History - Past Medical History Previously Healthy: No Endocrine: Reports: None Cardiovascular: Reports: CAD, [place], Hypertension (Uncontrolled ), CHF Respiratory: Reports: COPD, Asthma, Pneumonia Hematological: Reports: Anemia Gastrointestinal: Reports: PUD, GERD Genitourinary: Reports: Kidney stones, CKD Neuro/Psych: Reports: TIA, 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 Denies: Hysterectomy (D&C) - Family History Family History: Reports: Unknown - Social History Smoking Status: Current every day smoker Hx Substance Use: Yes (alcohol) Alcohol Screening: None - Immunizations Tetanus Shot up to Date: Yes Physical Exam - Physical Exam Appearance: Well-appearing Pain Distress: Mild Eyes: JENY, EOMI, Conjunctiva clear ENT: Ears normal, Nose normal, Oropharynx normal Neck: Supple Respiratory: Airway patent, Breath sounds clear, Breath sounds equal, Respirations nonlabored Cardiovascular: RRR, Pulses normal, No rub, No murmur GI/: Soft Musculoskeletal: Normal strength, ROM intact, No edema, No calf tenderness Skin: Warm, Dry, Normal color Neurological: Sensation intact Psychiatric: Affect appropriate Critical Care Note - Critical Care Note Total Time (mins): 0 Course - Course Hematology/Chemistry: 04/29/16 22:45 04/29/16 22:45 Orders, Labs, Meds: Lab Review 04/29/16 04/29/16 22:45 23:15 WBC 4.86 RBC 4.00 L Hgb 12.1 Hct 38.7 MCV 96.8 MCH 30.3 MCHC 31.3 L RDW Coeff of Gus 15.1 H Plt Count 205 Immature Gran % (Auto) 0.2 Neut % (Auto) 67.5 Lymph % (Auto) 16.9 Howard % (Auto) 10.1 H Eos % (Auto) 3.7 Baso % (Auto) 1.6 Immature Gran # (Auto) 0.0 Neut # 3.3 Lymph # 0.8 Howard # 0.5 Eos # 0.2 Baso # 0.1 Sodium 131 L Potassium 5.7 H Chloride 94 L Carbon Dioxide 21 Anion Gap 21.7 BUN 45 H Creatinine 8.04 H* Estimated GFR (MDRD) 5.00 BUN/Creatinine Ratio 5.59 Glucose 93 Calcium 11.7 H Total Bilirubin 0.61 AST 21 ALT 19 Alkaline Phosphatase 74 Total Protein 7.3 Albumin 4.1 Globulin 3.2 Albumin/Globulin Ratio 1.28 Urine Color Yellow Urine Clarity Slightly Urine pH 8.5 Ur Specific [place] 1.015 Urine Protein 2+ Urine Glucose (UA) Negative Urine Ketones Negative Urine Blood Trace-intact Urine Nitrite Negative Urine Bilirubin Negative Urine Urobilinogen 0.2 Ur Leukocyte Esterase Trace Urine Microscopic RBC 0-2 Urine Microscopic WBC 0-2 Ur Squamous Epith Cells 2-5 Ur Renal Epithelial Cell 0-2 Urine Bacteria Trace Influenza A (Rapid) Negative Influenza B (Rapid) Negative Orders Category Date Time Status BLOOD CULTURE Stat LAB 04/29/16 22:45 Received CBC W/ AUTO DIFF Stat LAB 04/29/16 22:45 Completed COMPREHENSIVE METABOLIC PANEL Stat LAB 04/29/16 22:45 Completed MOLECULAR GROUP A STREP Stat LAB 04/29/16 23:15 Results RAPID FLU A/B Stat LAB 04/29/16 23:15 Completed STREP SCREEN Stat LAB 04/29/16 23:15 Results URINALYSIS C & S IF INDICATED Stat LAB 04/29/16 23:15 Completed Tramadol HCl [Ultram] MEDS 04/29/16 22:32 Discontinued 100 mg PO ONCE STA Medications Discontinued Medications Generic Name Dose Route Start Last Admin Trade Name Jocelyn PRN Reason Stop Dose Admin Tramadol HCl 100 mg 04/29/16 22:32 04/29/16 23:07 Ultram PO 04/29/16 22:33 100 mg ONCE STA Administration Vital Signs: Temp Pulse Resp BP Pulse Ox 04/29/16 22:13 99.1 F 77 18 146/90 H 97 Departure - Departure Time of Disposition: 23:49 Disposition: HOME SELF-CARE Discharge Problem: Muscle pain Instructions: Musculoskeletal Pain (ED) Condition: Good Pt referred to PMD for follow-up: Yes Additional Instructions: f/u with pcp Allergies/Adverse Reactions: Allergies aspirin Adverse Reaction (Verified 04/29/16 22:17) Penicillins Adverse Reaction (Verified 04/29/16 22:17) Home Medications: Ambulatory Orders Carvedilol [Coreg] 25 mg PO BID 01/29/15 Calcium Acetate 667 mg PO DIRECTED 02/19/15 Hydralazine HCl 50 mg PO TID 03/27/15 Clonidine HCl 0.2 mg PO TID 09/14/15 Amlodipine Besylate 10 mg PO DAILY 10/16/15 Cholecalciferol (Vitamin D3) [Vitamin D3] 2,000 unit PO DAILY 12/03/15 Acetaminophen [Tylenol Arthritis] 650 mg PO Q4-6H PRN #100 tablet.er 12/04/15 Albuterol Sulfate [Proair Hfa] 2 puff IH Q6H PRN #1 inhaler 03/04/16 Clopidogrel Bisulfate [Plavix] 75 mg PO DAILY 04/15/16 Atorvastatin Calcium 40 mg PO BEDTIME 04/28/16 Calcium Carbonate/Vitamin D3 [Calcium 500 + Vit D3 400 Tab] 1 each PO DAILY Nitroglycerin [Nitrostat] 0.4 mg SL Q5MIN X 3 DOSES PRN 04/28/16 Sevelamer HCl [Renagel] 1,600 mg PO QID 04/28/16 Disposition Discussed With: Patient
== END 2016-04-29 23:58 | disposition home or self-care (01) ==
LOC: ED 22:12
DX: M79.1 Myalgia (principal); I10 Essential (primary) hypertension; F17.210 Nicotine dependence, cigarettes, uncomplicated
CPT/HCPCS: 36415; 80053; 81001; 85025; 87040; 87804; 87880

== ENCOUNTER 2016-05-05 00:11 | Emergency (ER) ==
[2016-05-05 00:19] VITALS: BP 127/86; TEMP 98.4; BMI 21.3
[2016-05-05] MEDS ORDERED: NORCO 5-325 PO STA (01:00)
--- NOTE | 2016-05-05 01:03 | ED.PDOC ---
General ED Provider: Dr. INDIGO NICHOLSON-ER Chief Complaint: Back Pain Stated Complaint: my lower back hurts tonight Time Seen by Physician: 00:15 Mode of Arrival: Walk-In Information Source: Patient Exam Limitations: No limitations Nursing and Triage Documentation Reviewed and Agree: Yes Musculoskeletal Complaint Exam - Back Pain Complaint/Exam Mechanism of Injury: Reports: No known trauma Onset/Duration: several mos Symptoms Are: Still present Timing: Constant Initial Severity: Mild Current Severity: Moderate Location: Reports: Discrete (lumbar spine) Character: Reports: Dull, Aching Aggravating: Reports: Movements, Lifting, Bending, Walking Alleviating: Reports: None Associated Signs and Symptoms: Denies: Swelling, Redness, Bruising, Fever, Weakness, Numbness, Tingling, Abdominal pain, Flank pain, Bladder incontinence, Bowel incontinence, Weight loss, Pain with weight bearing TAD Risk Factors: Reports: None AAA Risk Factors: Reports: Hypertension Cauda Equina Risk Factors: Reports: None Epidural Abcess Risk Factors: Reports: None Related Surgical History: Reports: None Focal Tenderness: Yes Paraspinal Muscle Tenderness: Yes Paraspinal Muscle Spasm: No Scoliosis: No Lordosis: No Kyphosis: No SLR Test: Right Negative, Left Negative Hip Motion Testing Pain: Right Negative, Left Negative Focal Weakness: Present: None Focal Sensory Loss: Present: None Gait: Present: Normal Differential Diagnoses: Herniated Disk, Strain, Sprain Review of Systems - Review Of Systems Constitutional: Reports: No symptoms Eyes: Reports: No symptoms Ears, Nose, Mouth, Throat: Reports: No symptoms Respiratory: Reports: No symptoms Cardiac: Reports: No symptoms GI: Reports: No symptoms, Other : Reports: No symptoms Musculoskeletal: Reports: Back pain Skin: Reports: No symptoms Neurological: Reports: No symptoms Endocrine: Reports: No symptoms Hematologic/Lymphatic: Reports: No symptoms All Other Systems: Reviewed and Negative Past Medical History - Past Medical History Previously Healthy: No Endocrine: Reports: None Cardiovascular: Reports: CAD, [place], Hypertension (Uncontrolled ), CHF Respiratory: Reports: COPD, Asthma, Pneumonia Hematological: Reports: Anemia Gastrointestinal: Reports: PUD, GERD Genitourinary: Reports: Kidney stones, CKD Neuro/Psych: Reports: TIA, 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 Denies: Hysterectomy (D&C) - Family History Family History: Reports: Unknown - Social History Smoking Status: Current every day smoker Hx Substance Use: Yes (alcohol) Alcohol Screening: None Lives: With family - Immunizations Tetanus Shot up to Date: Yes Physical Exam - Physical Exam Appearance: Well-appearing, No pain distress, Well-nourished Pain Distress: Mild Eyes: JENY, EOMI, Conjunctiva clear ENT: Ears normal, Nose normal, Oropharynx normal Neck: Supple Respiratory: Airway patent, Breath sounds clear, Breath sounds equal, Respirations nonlabored Cardiovascular: RRR, Pulses normal, No rub, No murmur GI/: Soft, Nontender, No masses, Bowel sounds normal, No Organomegaly Musculoskeletal: Normal strength, ROM intact, No edema, No calf tenderness Skin: Warm, Dry, Normal color Neurological: Sensation intact, Motor intact, Reflexes intact, Cranial nerves intact, Alert, Oriented Psychiatric: Affect appropriate, Mood appropriate Re-Evaluation - Re-Evaluation Time of Re-Evaluation: 01:45 Status: Improved Vital Signs Stable: Yes Pain Level: 1 Appearance: NAD Lungs: Clear Skin: Warm and Dry Neuro: Alert and Oriented X3 CV: RRR Critical Care Note - Critical Care Note Total Time (mins): 0 Course - Course Orders, Labs, Meds: Orders Category Date Time Status Hydrocodone Bit/Acetaminophen [[place] 5-325] MEDS 05/05/16 01:00 Stat 1 tab PO ONCE STA Vital Signs: Temp Pulse Resp BP Pulse Ox 05/05/16 00:12 98.4 F 76 18 127/86 97 Departure - Departure Time of Disposition: 01:05 Disposition: HOME SELF-CARE Discharge Problem: Chronic low back pain Qualifiers: Back pain laterality: unspecified Sciatica presence: without sciatica Qualifier Code: (M54.5) Low back pain Instructions: Chronic Back Pain (ED) Condition: Stable Pt referred to PMD for follow-up: Yes Additional Instructions: f/u with pcp Allergies/Adverse Reactions: Allergies aspirin Adverse Reaction (Verified 05/05/16 00:19) Penicillins Adverse Reaction (Verified 05/05/16 00:19) Home Medications: Ambulatory Orders Carvedilol [Coreg] 25 mg PO BID 01/29/15 Calcium Acetate 667 mg PO DIRECTED 02/19/15 Hydralazine HCl 50 mg PO TID 03/27/15 Clonidine HCl 0.2 mg PO TID 09/14/15 Amlodipine Besylate 10 mg PO DAILY 10/16/15 Cholecalciferol (Vitamin D3) [Vitamin D3] 2,000 unit PO DAILY 12/03/15 Acetaminophen [Tylenol Arthritis] 650 mg PO Q4-6H PRN #100 tablet.er 12/04/15 Albuterol Sulfate [Proair Hfa] 2 puff IH Q6H PRN #1 inhaler 03/04/16 Clopidogrel Bisulfate [Plavix] 75 mg PO DAILY 04/15/16 Atorvastatin Calcium 40 mg PO BEDTIME 04/28/16 Calcium Carbonate/Vitamin D3 [Calcium 500 + Vit D3 400 Tab] 1 each PO DAILY Nitroglycerin [Nitrostat] 0.4 mg SL Q5MIN X 3 DOSES PRN 04/28/16 Sevelamer HCl [Renagel] 1,600 mg PO QID 04/28/16 Disposition Discussed With: Patient
== END 2016-05-05 01:37 | disposition home or self-care (01) ==
LOC: ED 00:11
DX: M54.5 Low back pain (principal); G89.29 Other chronic pain; I10 Essential (primary) hypertension; F17.210 Nicotine dependence, cigarettes, uncomplicated
CPT/HCPCS: 99282

== ENCOUNTER 2016-05-05 22:51 | Emergency (ER) ==
[2016-05-05 23:01] VITALS: BP 111/76; TEMP 98.4; BMI 21.2
[2016-05-05] MEDS ORDERED: CARAFATE PO STA (23:25)
[2016-05-05] MEDS ORDERED: GI COCKTAIL PO STA (23:25)
[2016-05-05] MEDS ORDERED: ZOFRAN 4 MG/2 ML IM STA (23:25)
--- NOTE | 2016-05-05 23:29 | ED.PDOC ---
General ED Provider: Dr. KADE ARSHAD Chief Complaint: Nausea/Vomiting Stated Complaint: vomited once, hurting in the upper belly. Time Seen by Physician: 23:27 Mode of Arrival: Walk-In Information Source: Patient Nursing and Triage Documentation Reviewed and Agree: Yes GI Complaint Exam - Vomiting/Diarrhea Complaint/Exam Symptoms Are: Resolved Episodes of Vomiting over last 24 Hours: 1 Initial Severity: Mild Current Severity: None Character of Vomiting: Reports: Non-bilious Aggravating: Reports: Food Alleviating: Reports: None Associated Signs and Symptoms: Reports: Abdominal pain (epigastric). Denies: Dizziness, Light-headedness, Melena, Hematemesis, Fever, Cramping Recent Positive Test: No Use of Oral Contraceptives: No Use of Depoprovera: No Non-GI Risk Factors: Reports: None Surgical Obstruction Risk Factors: Reports: None Related Surgical History: Reports: None Abdominal Findings: Absent: Pulsatile mass, Abdominal distention, Unequal femoral pulses Differential Diagnoses: PUD, Hepatitis, Pancreatitis Review of Systems - Review Of Systems Constitutional: Reports: No symptoms Eyes: Reports: No symptoms Ears, Nose, Mouth, Throat: Reports: No symptoms Respiratory: Reports: No symptoms Cardiac: Reports: No symptoms GI: Reports: Abdominal pain, Vomiting : Reports: No symptoms Musculoskeletal: Reports: No symptoms Skin: Reports: No symptoms Neurological: Reports: No symptoms Endocrine: Reports: No symptoms Hematologic/Lymphatic: Reports: No symptoms All Other Systems: Reviewed and Negative Past Medical History - Past Medical History Previously Healthy: No Endocrine: Reports: None Cardiovascular: Reports: CAD (s/p stent dr luna 04-24), [place], Hypertension ( Uncontrolled ), CHF Respiratory: Reports: COPD, Asthma, Pneumonia Hematological: Reports: Anemia Gastrointestinal: Reports: PUD, GERD Genitourinary: Reports: Kidney stones, CKD Neuro/Psych: Reports: TIA, 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 Denies: Hysterectomy (D&C) - Family History Family History: Reports: Unknown - Social History Smoking Status: Current every day smoker Hx Substance Use: Yes (alcohol) Alcohol Screening: None - Immunizations Tetanus Shot up to Date: Yes Physical Exam - Physical Exam Appearance: Well-appearing, Thin Eyes: JENY, EOMI, Conjunctiva clear ENT: Ears normal, Nose normal, Oropharynx normal Respiratory: Airway patent, Breath sounds clear, Breath sounds equal, Respirations nonlabored Cardiovascular: RRR, Pulses normal, No rub, No murmur GI/: Soft, Nontender, No masses, Bowel sounds normal, No Organomegaly Musculoskeletal: Normal strength, ROM intact, No edema, No calf tenderness Skin: Warm, Dry, Normal color Neurological: Sensation intact, Motor intact, Reflexes intact, Cranial nerves intact, Alert, Oriented Psychiatric: Affect appropriate, Mood appropriate Critical Care Note - Critical Care Note Total Time (mins): 0 Course - Course Orders, Labs, Meds: Orders Category Date Time Status AMYLASE Stat LAB 05/05/16 23:26 Ordered CBC W/ AUTO DIFF Stat LAB 05/05/16 23:26 Ordered COMPREHENSIVE METABOLIC PANEL Stat LAB 05/05/16 23:26 Ordered LIPASE Stat LAB 05/05/16 23:26 Ordered Mag-Al Plus//Lidocaine [Gi Cocktail] MEDS 05/05/16 23:25 Stat 30 ml PO ONCE STA Ondansetron HCl/Pf [Zofran 4 mg/2 ml] MEDS 05/05/16 23:25 Stat 4 mg IM ONCE STA Sucralfate Susp [Carafate] MEDS 05/05/16 23:25 Stat 1 gm PO ONCE STA CT ABDOMEN/PELVIS WO CONTRAST Stat RADS 05/05/16 23:26 Ordered Medications Generic Name Dose Route Start Last Admin Trade Name Freq PRN Reason Stop Dose Admin Al Hydroxide/Mg Hydroxide 30 ml 05/05/16 23:25 Gi Cocktail PO 05/05/16 23:26 ONCE STA Ondansetron HCl 4 mg 05/05/16 23:25 Zofran 4 Mg/2 Ml IM 05/05/16 23:26 ONCE STA Sucralfate 1 gm 05/05/16 23:25 Carafate PO 05/05/16 23:26 ONCE STA Vital Signs: Temp Pulse Resp BP Pulse Ox 05/05/16 22:52 98.4 F 76 18 111/76 98 Departure - Departure Time of Disposition: 00:40 Disposition: HOME SELF-CARE Discharge Problem: Vomiting, PUD (peptic ulcer disease) Instructions: Peptic Ulcer (ED) Condition: Stable Pt referred to PMD for follow-up: Yes Additional Instructions: no spicy food no fried food needs f/u with PMD Prescriptions: Ranitidine HCl [Zantac] 150 mg PO BIDAC #20 tablet Sucralfate Susp [Carafate] 1 gm PO ACHS #1 bottle Allergies/Adverse Reactions: Allergies aspirin Adverse Reaction (Verified 05/05/16 23:00) Penicillins Adverse Reaction (Verified 05/05/16 23:00) Home Medications: Ambulatory Orders Carvedilol [Coreg] 25 mg PO BID 01/29/15 Hydralazine HCl 50 mg PO TID 03/27/15 Clonidine HCl 0.2 mg PO TID 09/14/15 Amlodipine Besylate 10 mg PO DAILY 10/16/15 Cholecalciferol (Vitamin D3) [Vitamin D3] 2,000 unit PO DAILY 12/03/15 Acetaminophen [Tylenol Arthritis] 650 mg PO Q4-6H PRN #100 tablet.er 12/04/15 Albuterol Sulfate [Proair Hfa] 2 puff IH Q6H PRN #1 inhaler 03/04/16 Clopidogrel Bisulfate [Plavix] 75 mg PO DAILY 04/15/16 Atorvastatin Calcium 40 mg PO BEDTIME 04/28/16 Calcium Carbonate/Vitamin D3 [Calcium 500 + Vit D3 400 Tab] 1 each PO DAILY Nitroglycerin [Nitrostat] 0.4 mg SL Q5MIN X 3 DOSES PRN 04/28/16 Sevelamer HCl [Renagel] 1,600 mg PO QID 04/28/16 Ranitidine HCl [Zantac] 150 mg PO BIDAC #20 tablet 05/05/16 Sucralfate Susp [Carafate] 1 gm PO ACHS #1 bottle 05/05/16 Disposition Discussed With: Patient
[2016-05-05 23:44] LABS: BASOPHILS # (AUTO) 0.1 K/uL (0-0.2); EOSINOPHILS # (AUTO) 0.1 K/ul (0.0-0.7); EOSINOPHILS % (AUTO) 3.4 % (0.0-7.0); HEMATOCRIT 38.4 % (37.0-47.0); HEMOGLOBIN 12.4 g/dl (12.0-16.0); IMMATURE GRANULOCYTE % (AUTO) 0.2 % (0.0-5.0); LYMPHOCYTES # (AUTO) 0.9 K/uL (0.60-3.4); LYMPHOCYTES % (AUTO) 22.4 (10.0-50.0); MEAN CORPUSCULAR HEMOGLOBIN 30.7 pg (27.0-31.0); MEAN CORPUSCULAR HGB CONC 32.3 (31.8-35.4); MONOCYTES # (AUTO) 0.4 K/uL (0.4-2.0); MONOCYTES % (AUTO) 10.6 (0-10); NEUTROPHILS # (AUTO) 2.5 K/ul (2.0-6.9); NEUTROPHILS % (AUTO) 61.4; PLATELET COUNT 216 10^3/uL (140-440); RED BLOOD COUNT 4.04 10^6/ul (4.20-5.40); WHITE BLOOD COUNT 4.07 K/ul (4.6-10.2)
[2016-05-06 00:09] LABS: ALBUMIN 4.3 g/dL (3.4-5.0); ALBUMIN/GLOBULIN RATIO 1.48; ANION GAP 21.8; BILIRUBIN,TOTAL 0.5 mg/dL (0.00-1.20); BUN/CREATININE RATIO 4.33; CALCIUM 10.9 mg/dL (8.2-10.2); POTASSIUM 4.8 mmol/L (3.5-5.10); TOTAL PROTEIN 7.2 g/dL (6.4-8.2)
[2016-05-06 00:10] LABS: CREATININE 7.38 mg/dL (0.60-1.30)
--- NOTE | 2016-05-06 00:16 | CT ---
EXAM: CT of the abdomen and pelvis without contrast. HISTORY: Epigastric pain. Nausea and vomiting. PROCEDURE: Contiguous axial CT images of the abdomen and pelvis without contrast with coronal and s agittal reformats. FINDINGS: There is a dialysis catheter with the tips terminating at the level of the hepatic veins. There are calcifications in the liver. The gallbladder, pancreas, spleen, and left adrenal gland are normal in appearance. There are calcifications in the right adrenal gland. There is marked yaya ateral renal atrophy. There is a left renal cyst. The abdominal aorta is within normal limits in d iameter. The visualized loops of bowel and appendix are normal in appearance. No free fluid or darlene e air in the abdomen or pelvis. The bladder is minimally filled which limits the evaluation. The u terus is unremarkable. There is a stable simple fluid collection in the right inguinal region measu ring 2.1 x 1.7 cm. There is an old healed fracture of the left inferior pubic ramus. There are deg enerative changes in the spine. Impression: Bilateral renal atrophy. Stable 2.1 x 1.7 cm simple fluid collection in the right inguinal region. Dialysis catheter with the tips terminating at the level of the hepatic veins.
== END 2016-05-06 00:30 | disposition home or self-care (01) ==
LOC: ED 22:51
DX: K27.9 Peptic ulcer, site unspecified, unspecified as acute or chronic, without hemorrhage or perforation (principal); M54.5 Low back pain; G89.29 Other chronic pain; I10 Essential (primary) hypertension; F17.210 Nicotine dependence, cigarettes, uncomplicated; Z79.899 Other long term (current) drug therapy
CPT/HCPCS: 36415; 80053; 82150; 83690; 85025; 96372; 99282; 99283

== ENCOUNTER 2016-05-26 19:13 | Emergency (ER) ==
[2016-05-26 19:19] VITALS: BP 168/107; TEMP 97.3; BMI 21.3
[2016-05-26 19:45] LABS: FLU INTERNAL QC INTERNAL QC VALID; RAPID FLU A NEGATIVE (NEGATIVE); RAPID FLU B NEGATIVE (NEGATIVE)
[2016-05-26] MEDS ORDERED: XOPENEX 1.25 MG NEB STA (20:06)
--- NOTE | 2016-05-26 20:32 | ED.PDOC ---
General ED Provider: Dr. INDIGO NICHOLSON-ER Chief Complaint: Cough Stated Complaint: i was exposed to a virus.. Time Seen by Physician: 19:20 Mode of Arrival: Walk-In Information Source: Patient Exam Limitations: No limitations Nursing and Triage Documentation Reviewed and Agree: Yes Respiratory Complaint Exam - Respiratory Complaint/Exam Onset/Duration: 24hrs Symptoms Are: Still present Timing: Intermittent Initial Severity: Mild Current Severity: Mild Character: Reports: Non-productive cough Aggravating: Reports: URI Alleviating: Reports: None Associated Signs and Symptoms: Reports: URI. Denies: Rapid breathing, Dyspnea, Fever, Chills, Chest pain, Pleuritic chest pain, Wheezing, Hemoptysis, Dizziness , Calf pain, Calf swelling, Edema, Nasal congestion, Hoarseness, Sinus discomfort, Vomiting, Sore throat, Weight loss, Decreased oral intake, Increased thirst, Increased appetite, Increased urination Related History: Reports: Similar episode History of Healthcare-Acquired Pneumonia: No Related Surgical History: Reports: None Pulmonary Embolism Risk Factors: None Cardiac Risk Factors: Reports: Smoking Pseudomonas Risk Factors: Reports: None Tuberculosis Risk Factors: Reports: None Status Asthmaticus Risk Factors: Reports: None Home Oxygen Use: No Recent Stress Test: No Recent Echo/LV Function: No Current Antibiotic Use: No Current Asthma Medication Use: No Respiratory Distress: None Inadequate Respiratory Effort: No Dysphagia Present: No Stridor Present: No JVD Present: No Accessory Muscle Use: No Retractions: Not Present Diminished Breath Sounds: No Sinus Tenderness: None Grunting Respirations: No Kussmaul Respirations: No Differential Diagnoses: Bronchitis Review of Systems - Review Of Systems Constitutional: Reports: No symptoms Eyes: Reports: No symptoms Ears, Nose, Mouth, Throat: Reports: No symptoms Respiratory: Reports: Cough Cardiac: Reports: No symptoms GI: Reports: No symptoms : Reports: No symptoms Musculoskeletal: Reports: No symptoms Skin: Reports: No symptoms Neurological: Reports: No symptoms Endocrine: Reports: No symptoms Hematologic/Lymphatic: Reports: No symptoms All Other Systems: Reviewed and Negative Past Medical History - Past Medical History Previously Healthy: No Endocrine: Reports: None Cardiovascular: Reports: CAD (s/p stent dr luna 04-24), [place], Hypertension ( Uncontrolled ), CHF Respiratory: Reports: COPD, Asthma, Pneumonia Hematological: Reports: Anemia Gastrointestinal: Reports: PUD, GERD Genitourinary: Reports: Kidney stones, CKD Neuro/Psych: Reports: TIA, 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 Denies: Hysterectomy (D&C) - Family History Family History: Reports: Unknown - Social History Smoking Status: Current every day smoker Hx Substance Use: Yes (alcohol) Alcohol Screening: None - Immunizations Tetanus Shot up to Date: Yes Physical Exam - Physical Exam Appearance: Well-appearing, No pain distress, Well-nourished Eyes: JENY, EOMI, Conjunctiva clear ENT: Ears normal, Nose normal, Oropharynx normal Neck: Supple Respiratory: Rhonchi Cardiovascular: RRR, Pulses normal, No rub, No murmur GI/: Soft, Nontender, No masses, Bowel sounds normal, No Organomegaly Musculoskeletal: Normal strength, ROM intact, No edema, No calf tenderness Skin: Warm, Dry, Normal color Neurological: Sensation intact, Motor intact, Reflexes intact, Cranial nerves intact, Alert, Oriented Psychiatric: Affect appropriate, Mood appropriate Interpretation - Radiology Interpretation Radiology Interpretation By: ED Physician Radiology Results: Negative Exam Interpreted: CXR Re-Evaluation - Re-Evaluation Time of Re-Evaluation: 20:33 Status: Improved Vital Signs Stable: Yes Pain Level: 0 Appearance: NAD Lungs: Clear Skin: Warm and Dry Neuro: Alert and Oriented X3 CV: RRR Critical Care Note - Critical Care Note Total Time (mins): 0 Course - Course Orders, Labs, Meds: Lab Review 05/26/16 19:25 Influenza A (Rapid) Negative Influenza B (Rapid) Negative Orders Category Date Time Status NEBULIZER TREATMENT Stat CARDIO 05/26/16 20:06 Completed FLU A & B RAPID TEST [RAPID FLU A/B] Stat LAB 05/26/16 19:25 Completed Levalbuterol HCl [Xopenex 1.25 mg] MEDS 05/26/16 20:06 Discontinued 1 vial NEB ONCE STA CXR [CHEST, 2 VIEWS PA & LAT] Stat RADS 05/26/16 20:06 Taken Medications Discontinued Medications Generic Name Dose Route Start Last Admin Trade Name Jocelyn PRN Reason Stop Dose Admin Levalbuterol HCl 1 vial 05/26/16 20:06 05/26/16 20:19 Xopenex 1.25 Mg NEB 05/26/16 20:07 1 vial ONCE STA Administration Vital Signs: Temp Pulse Resp BP Pulse Ox 05/26/16 19:15 97.3 F L 95 H 20 168/107 H 98 Departure - Departure Time of Disposition: 20:33 Disposition: HOME SELF-CARE Discharge Problem: Bronchitis Instructions: Acute Bronchitis (ED) Condition: Stable Pt referred to PMD for follow-up: Yes Additional Instructions: zpack--mdrol dose pack--use your inhaler---f/u with pcp Allergies/Adverse Reactions: Allergies aspirin Adverse Reaction (Verified 05/26/16 19:18) Penicillins Adverse Reaction (Verified 05/26/16 19:18) Home Medications: Ambulatory Orders Carvedilol [Coreg] 25 mg PO BID 01/29/15 Hydralazine HCl 25 mg PO DAILY 03/27/15 Clonidine HCl 0.2 mg PO TID 09/14/15 Amlodipine Besylate 10 mg PO DAILY 10/16/15 Cholecalciferol (Vitamin D3) [Vitamin D3] 2,000 unit PO DAILY 12/03/15 Acetaminophen [Tylenol Arthritis] 650 mg PO Q4-6H PRN #100 tablet.er 12/04/15 Albuterol Sulfate [Proair Hfa] 2 puff IH Q6H PRN #1 inhaler 03/04/16 Clopidogrel Bisulfate [Plavix] 75 mg PO DAILY 04/15/16 Atorvastatin Calcium 40 mg PO BEDTIME 04/28/16 Calcium Carbonate/Vitamin D3 [Calcium 500 + Vit D3 400 Tab] 1 each PO DAILY Nitroglycerin [Nitrostat] 0.4 mg SL Q5MIN X 3 DOSES PRN 04/28/16 Sevelamer HCl [Renagel] 1,600 mg PO QID 04/28/16 Ranitidine HCl [Zantac] 150 mg PO BIDAC #20 tablet 05/05/16 Sucralfate Susp [Carafate] 1 gm PO ACHS #1 bottle 05/05/16 Disposition Discussed With: Patient
--- NOTE | 2016-05-26 21:00 | DI ---
EXAM: Two views of the chest. History: Cough. Comparison: Chest radiograph 04/19/2016 Findings: Normal heart size. Coronary calcifications and or stents. Right central line again seen in place. No focal consolidation. No appreciable pleural fluid and no pneumothorax. Old right-si ded rib fractures again noted. Chronic thoracic spine compression deformity again noted Impression: No acute cardiopulmonary process.
== END 2016-05-26 20:44 | disposition home or self-care (01) ==
LOC: ED 19:13
DX: J20.9 Acute bronchitis, unspecified (principal); I10 Essential (primary) hypertension; J44.9 Chronic obstructive pulmonary disease, unspecified; F17.210 Nicotine dependence, cigarettes, uncomplicated; Z79.899 Other long term (current) drug therapy
CPT/HCPCS: 87804; 94640; 99284

== ENCOUNTER 2016-05-29 20:39 | Emergency (ER) ==
[2016-05-29 20:42] VITALS: BP 143/86; TEMP 97.6; BMI 22.5
[2016-05-29] MEDS ORDERED: ZOFRAN ODT PO STA (21:03)
--- NOTE | 2016-05-29 21:19 | ED.PDOC ---
General ED Provider: Dr. CRISTINO AYERS Chief Complaint: Nausea/Vomiting Stated Complaint: Patient states she vomiting today about 2 hours ago. Now feels nauseated. Time Seen by Physician: 21:17 Mode of Arrival: Walk-In Information Source: Patient Exam Limitations: No limitations Nursing and Triage Documentation Reviewed and Agree: Yes GI Complaint Exam - Vomiting/Diarrhea Complaint/Exam Onset/Duration: 1 day Symptoms Are: Resolved Episodes of Vomiting over last 24 Hours: 2 Episodes of Diarrhea Over Last 24 Hours: 0 Initial Severity: Moderate Current Severity: None Character of Vomiting: Reports: Non-bilious Aggravating: Reports: Food Alleviating: Reports: NPO Associated Signs and Symptoms: Reports: Abdominal pain. Denies: Dizziness, Light-headedness, Melena, Hematemesis, Fever, Cramping Recent Positive Test: No Use of Oral Contraceptives: No Use of Depoprovera: No Compliant With Contraceptive Use: No Non-GI Risk Factors: Reports: None Surgical Obstruction Risk Factors: Reports: None Related Surgical History: Reports: None Abdominal Findings: Present: None Kussmaul Respirations Present: No Differential Diagnoses: Viral Gastroenteritis Review of Systems - Review Of Systems Constitutional: Reports: No symptoms Eyes: Reports: No symptoms Ears, Nose, Mouth, Throat: Reports: No symptoms Respiratory: Reports: No symptoms Cardiac: Reports: No symptoms GI: Reports: Nausea, Poor appetite, Vomiting : Reports: No symptoms Musculoskeletal: Reports: No symptoms Skin: Reports: No symptoms Neurological: Reports: No symptoms Endocrine: Reports: No symptoms Hematologic/Lymphatic: Reports: No symptoms All Other Systems: Reviewed and Negative Past Medical History - Past Medical History Previously Healthy: No Endocrine: Reports: None Cardiovascular: Reports: CAD (s/p stent dr luna 04-24), [place], Hypertension ( Uncontrolled ), CHF Respiratory: Reports: COPD, Asthma, Pneumonia Hematological: Reports: Anemia Gastrointestinal: Reports: PUD, GERD Genitourinary: Reports: Kidney stones, CKD Neuro/Psych: Reports: TIA, 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 Denies: Hysterectomy (D&C) - Family History Family History: Reports: Unknown - Social History Smoking Status: Current every day smoker Hx Substance Use: Yes (alcohol) Alcohol Screening: None Physical Exam - Physical Exam Appearance: Ill-appearing, Well-nourished Ill-appearing: Mild Pain Distress: Mild Eyes: JENY, EOMI, Conjunctiva clear ENT: Ears normal, Nose normal, Oropharynx normal Respiratory: Airway patent, Breath sounds clear, Breath sounds equal, Respirations nonlabored Cardiovascular: RRR, Pulses normal, No rub, No murmur GI/: Soft, Nontender, No masses, Bowel sounds normal, No Organomegaly Musculoskeletal: Normal strength, ROM intact, No edema, No calf tenderness Skin: Warm, Dry, Normal color Neurological: Sensation intact, Motor intact, Reflexes intact, Cranial nerves intact, Alert, Oriented Psychiatric: Anxious Critical Care Note - Critical Care Note Total Time (mins): 0 Course - Course Orders, Labs, Meds: Orders Category Date Time Status Ondansetron [Zofran Odt] MEDS 05/29/16 21:03 Discontinued 4 mg PO ONCE STA Medications Discontinued Medications Generic Name Dose Route Start Last Admin Trade Name Freq PRN Reason Stop Dose Admin Ondansetron HCl 4 mg 05/29/16 21:03 05/29/16 21:30 Zofran Odt PO 05/29/16 21:04 4 mg ONCE STA Administration Vital Signs: Temp Pulse Resp BP Pulse Ox 05/29/16 20:39 97.6 F 78 16 143/86 H 98 Departure - Departure Time of Disposition: 22:35 Disposition: HOME SELF-CARE Discharge Problem: Nausea, Vomiting Instructions: Viral Syndrome (ED), Food Poisoning (ED) Condition: Stable Pt referred to PMD for follow-up: Yes Additional Instructions: Go on clear liquid diet for 24 hours. Push fluids Take Nausea medications as needed. Follow up with PCP in 3 days Prescriptions: Ondansetron HCl [Zofran Tab] 4 mg PO Q8H PRN #14 tablet PRN Reason: Nausea / Vomiting Allergies/Adverse Reactions: Allergies aspirin Adverse Reaction (Verified 05/29/16 20:43) Penicillins Adverse Reaction (Verified 05/29/16 20:43) Home Medications: Ambulatory Orders Carvedilol [Coreg] 25 mg PO BID 01/29/15 Hydralazine HCl 25 mg PO DAILY 03/27/15 Clonidine HCl 0.2 mg PO TID 09/14/15 Amlodipine Besylate 10 mg PO DAILY 10/16/15 Cholecalciferol (Vitamin D3) [Vitamin D3] 2,000 unit PO DAILY 12/03/15 Acetaminophen [Tylenol Arthritis] 650 mg PO Q4-6H PRN #100 tablet.er 12/04/15 Albuterol Sulfate [Proair Hfa] 2 puff IH Q6H PRN #1 inhaler 03/04/16 Clopidogrel Bisulfate [Plavix] 75 mg PO DAILY 04/15/16 Atorvastatin Calcium 40 mg PO BEDTIME 04/28/16 Calcium Carbonate/Vitamin D3 [Calcium 500 + Vit D3 400 Tab] 1 each PO DAILY Nitroglycerin [Nitrostat] 0.4 mg SL Q5MIN X 3 DOSES PRN 04/28/16 Sevelamer HCl [Renagel] 1,600 mg PO QID 04/28/16 Ranitidine HCl [Zantac] 150 mg PO BIDAC #20 tablet 05/05/16 Sucralfate Susp [Carafate] 1 gm PO ACHS #1 bottle 05/05/16 Ondansetron HCl [Zofran Tab] 4 mg PO Q8H PRN #14 tablet 05/29/16 Disposition Discussed With: Patient
== END 2016-05-29 23:00 | disposition home or self-care (01) ==
LOC: ED 20:39
DX: R11.2 Nausea with vomiting, unspecified (principal); R10.9 Unspecified abdominal pain; F17.210 Nicotine dependence, cigarettes, uncomplicated
CPT/HCPCS: 99282; 99283

== ENCOUNTER 2016-06-03 21:31 | Emergency (ER) ==
[2016-06-03 21:31] VITALS: BMI 22.5
[2016-06-03] MEDS ORDERED: APRESOLINE PO STA (21:33)
[2016-06-03] MEDS ORDERED: CATAPRES PO STA (21:33)
[2016-06-03] MEDS ORDERED: PROCARDIA XL PO STA (21:34)
[2016-06-03] MEDS ORDERED: NORCO 5-325 PO STA (21:34)
--- NOTE | 2016-06-03 21:37 | ED.PDOC ---
General ED Provider: Dr. INDIGO NICHOLSON-ER Chief Complaint: Headache Stated Complaint: my head hurts.. Time Seen by Physician: 21:35 Mode of Arrival: Walk-In Information Source: Patient Exam Limitations: No limitations Nursing and Triage Documentation Reviewed and Agree: Yes Neurological Complaint Exam - Headache Complaint/Exam Onset: Gradual Duration: several days Symptoms Are: Still present Timing: Constant Episodes Lasting: Hours Worst Headache Ever: No Initial Severity: Mild Current Severity: Moderate Location: Diffuse Character: Reports: Dull Alleviating: Reports: None Associated Signs and Symptoms: Denies: Dizziness, Seizure, Nausea, Vomiting, Sinus pressure, Fever, Neck pain, Neck stiffness, Decreased LOC, Visual changes Related History: Reports: Similar episode Related Surgical History: Reports: None SAH Risk Factors: Reports: Smoking, Hypertension Meningitis Risk Factors: Reports: None SDH Risk Factors: Reports: None Temporal Arteritis Risk Factors: Reports: Female, Normal Head CT Within Last 12 Months: No Fundoscopic Exam: Present: Normal Findings Papilledema Present: No Temporal Artery Tenderness: Present: None Sinus Tenderness: Present: None TMJ Tenderness: Present: None Glascow Coma Scale (see protocol): 15 Meningeal Signs Positive: No Pain on Passive Flexion-Positive Kernig's: No ROM Limited In: No Limitiations Focal Weakness: Present: None Focal Sensory Loss: Present: None Gait: Normal Nystagmus Present: No Gag Reflex Present: Yes [id number]: Normal Findings Romberg Test Positive: No Babinski Sign: Negative Right, Negative Left Heel to Toe Normal: Yes Differential Diagnoses: Migraine, Other Review of Systems - Review Of Systems Constitutional: Reports: No symptoms Eyes: Reports: No symptoms Ears, Nose, Mouth, Throat: Reports: No symptoms Respiratory: Reports: No symptoms Cardiac: Reports: No symptoms GI: Reports: No symptoms : Reports: No symptoms Musculoskeletal: Reports: No symptoms Skin: Reports: No symptoms Neurological: Reports: No symptoms Endocrine: Reports: No symptoms Hematologic/Lymphatic: Reports: No symptoms All Other Systems: Reviewed and Negative Past Medical History - Past Medical History Previously Healthy: No Endocrine: Reports: None Cardiovascular: Reports: CAD (s/p stent dr luna 04-24), [place], Hypertension ( Uncontrolled ), CHF Respiratory: Reports: COPD, Asthma, Pneumonia Hematological: Reports: Anemia Gastrointestinal: Reports: PUD, GERD Genitourinary: Reports: Kidney stones, CKD Neuro/Psych: Reports: TIA, 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 Denies: Hysterectomy (D&C) - Family History Family History: Reports: Unknown - Social History Smoking Status: Current every day smoker Hx Substance Use: Yes (alcohol) Alcohol Screening: None Lives: With family Physical Exam - Physical Exam Appearance: Well-appearing, No pain distress, Well-nourished Pain Distress: Moderate Eyes: JENY, EOMI, Conjunctiva clear ENT: Ears normal, Nose normal, Oropharynx normal Neck: Supple Respiratory: Airway patent, Breath sounds clear, Breath sounds equal, Respirations nonlabored Cardiovascular: RRR, Pulses normal, No rub, No murmur GI/: Soft, Nontender, No masses, Bowel sounds normal, No Organomegaly Musculoskeletal: Normal strength, ROM intact, No edema, No calf tenderness Skin: Warm, Dry, Normal color Neurological: Sensation intact, Motor intact, Reflexes intact, Cranial nerves intact, Alert, Oriented Psychiatric: Affect appropriate, Mood appropriate Re-Evaluation - Re-Evaluation Time of Re-Evaluation: 23:32 Status: Improved (bp 170/110--no urbano) Vital Signs Stable: Yes Pain Level: 0 Appearance: NAD Lungs: Clear Skin: Warm and Dry Neuro: Alert and Oriented X3 CV: RRR Critical Care Note - Critical Care Note Total Time (mins): 0 Course - Course Orders, Labs, Meds: Orders Category Date Time Status Clonidine HCl [Catapres] MEDS 06/03/16 21:33 Discontinued 0.3 mg PO ONCE STA Hydralazine HCl [Apresoline] MEDS 06/03/16 21:33 Discontinued 100 mg PO ONCE STA Hydrocodone Bit/Acetaminophen [[place] 5-325] MEDS 06/03/16 21:34 Discontinued 1 tab PO ONCE STA Nifedipine [Procardia Xl] MEDS 06/03/16 21:34 Discontinued 90 mg PO ONCE STA Medications Discontinued Medications Generic Name Dose Route Start Last Admin Trade Name Freq PRN Reason Stop Dose Admin Acetaminophen/Hydrocodone Bitart 1 tab 06/03/16 21:34 06/03/16 21:47 [place] 5-325 PO 06/03/16 21:35 1 tab ONCE STA Administration Clonidine 0.3 mg 06/03/16 21:33 06/03/16 21:46 Catapres PO 06/03/16 21:34 0.3 mg ONCE STA Administration Hydralazine HCl 100 mg 06/03/16 21:33 06/03/16 21:47 Apresoline PO 06/03/16 21:34 100 mg ONCE STA Administration Nifedipine 90 mg 06/03/16 21:34 06/03/16 21:47 Procardia Xl PO 06/03/16 21:35 90 mg ONCE STA Administration Vital Signs: Temp Pulse Resp BP Pulse Ox 06/03/16 22:57 97.8 F 91 H 18 193/130 H 97 06/03/16 22:30 97.5 F L 90 18 202/125 H 96 06/03/16 21:31 98 F 93 H 18 235/149 H 98 Departure - Departure Time of Disposition: 23:32 Disposition: HOME SELF-CARE Discharge Problem: Malignant hypertension Instructions: Chronic Hypertension (ED) Condition: Good Pt referred to PMD for follow-up: Yes Additional Instructions: f/u pcp Allergies/Adverse Reactions: Allergies aspirin Adverse Reaction (Verified 06/03/16 21:37) Penicillins Adverse Reaction (Verified 06/03/16 21:37) Home Medications: Ambulatory Orders Carvedilol [Coreg] 25 mg PO BID 01/29/15 Hydralazine HCl 25 mg PO DAILY 03/27/15 Clonidine HCl 0.2 mg PO TID 09/14/15 Amlodipine Besylate 10 mg PO DAILY 10/16/15 Cholecalciferol (Vitamin D3) [Vitamin D3] 2,000 unit PO DAILY 12/03/15 Acetaminophen [Tylenol Arthritis] 650 mg PO Q4-6H PRN #100 tablet.er 12/04/15 Albuterol Sulfate [Proair Hfa] 2 puff IH Q6H PRN #1 inhaler 03/04/16 Clopidogrel Bisulfate [Plavix] 75 mg PO DAILY 04/15/16 Atorvastatin Calcium 40 mg PO BEDTIME 04/28/16 Calcium Carbonate/Vitamin D3 [Calcium 500 + Vit D3 400 Tab] 1 each PO DAILY Nitroglycerin [Nitrostat] 0.4 mg SL Q5MIN X 3 DOSES PRN 04/28/16 Sevelamer HCl [Renagel] 1,600 mg PO QID 04/28/16 Ranitidine HCl [Zantac] 150 mg PO BIDAC #20 tablet 05/05/16 Sucralfate Susp [Carafate] 1 gm PO ACHS #1 bottle 05/05/16 Ondansetron HCl [Zofran Tab] 4 mg PO Q8H PRN #14 tablet 05/29/16 Disposition Discussed With: Patient
[2016-06-03 23:32] VITALS: BP 187/121; TEMP 97.6
== END 2016-06-03 23:41 | disposition home or self-care (01) ==
LOC: ED 21:31
DX: I10 Essential (primary) hypertension (principal); R51 Headache; Z79.899 Other long term (current) drug therapy
CPT/HCPCS: 99283

== ENCOUNTER 2016-06-08 12:13 | Outpatient (CLI) ==
[2016-06-08 12:57] LABS: HEMATOCRIT 32.1 % (37.0-47.0); HEMOGLOBIN 10.6 g/dl (12.0-16.0)
== END 2016-06-08 12:14 | disposition home or self-care (01) ==
LOC: NONPT 12:13
PROVIDERS: ATTEND Internal Medicine Nephrology
DX: D64.9 Anemia, unspecified (principal)
CPT/HCPCS: 85014; 85018

== ENCOUNTER 2016-06-11 00:18 | Emergency (ER) ==
[2016-06-11 00:27] VITALS: BP 155/90; TEMP 98.4; BMI 23.6
[2016-06-11] MEDS ORDERED: NORCO 5-325 PO STA (01:11)
--- NOTE | 2016-06-11 01:13 | ED.PDOC ---
General ED Provider: Dr. INDIGO NICHOLSON-ER Chief Complaint: Back Pain Stated Complaint: my back hurts and im not going back to pain management Time Seen by Physician: 00:20 Mode of Arrival: Walk-In Information Source: Patient Exam Limitations: No limitations Nursing and Triage Documentation Reviewed and Agree: Yes Musculoskeletal Complaint Exam - Back Pain Complaint/Exam Mechanism of Injury: Reports: No known trauma Onset/Duration: several mos Symptoms Are: Still present Timing: Constant Episodes Lasting: Hours Initial Severity: Mild Current Severity: Moderate Location: Reports: Discrete Character: Reports: Dull, Aching Aggravating: Reports: Movements, Lifting, Bending, Walking Alleviating: Reports: None Associated Signs and Symptoms: Denies: Swelling, Redness, Bruising, Fever, Weakness, Numbness, Tingling, Abdominal pain, Flank pain, Bladder incontinence, Bowel incontinence, Weight loss, Pain with weight bearing Related History: Reports: Previous back injury TAD Risk Factors: Reports: Hypertension AAA Risk Factors: Reports: Hypertension Cauda Equina Risk Factors: Reports: None Epidural Abcess Risk Factors: Reports: None Focal Tenderness: Yes Paraspinal Muscle Tenderness: Yes Paraspinal Muscle Spasm: No Scoliosis: No Lordosis: No Kyphosis: No SLR Test: Right Negative, Left Negative Hip Motion Testing Pain: Right Negative, Left Negative Focal Weakness: Present: None Focal Sensory Loss: Present: None Gait: Present: Abnormal Differential Diagnoses: Herniated Disk, Strain, Sprain Review of Systems - Review Of Systems Constitutional: Reports: No symptoms Eyes: Reports: No symptoms Ears, Nose, Mouth, Throat: Reports: No symptoms Respiratory: Reports: No symptoms Cardiac: Reports: No symptoms GI: Reports: No symptoms : Reports: No symptoms Musculoskeletal: Reports: Back pain Skin: Reports: No symptoms Neurological: Reports: No symptoms Endocrine: Reports: No symptoms Hematologic/Lymphatic: Reports: No symptoms All Other Systems: Reviewed and Negative Past Medical History - Past Medical History Previously Healthy: No Endocrine: Reports: None Cardiovascular: Reports: CAD (s/p stent dr luna 04-24), [place], Hypertension ( Uncontrolled ), CHF Respiratory: Reports: COPD, Asthma, Pneumonia Hematological: Reports: Anemia Gastrointestinal: Reports: PUD, GERD Genitourinary: Reports: Kidney stones, CKD Neuro/Psych: Reports: TIA, 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 Denies: Hysterectomy (D&C) - Family History Family History: Reports: Unknown - Social History Smoking Status: Current every day smoker Hx Substance Use: Yes (HX: alcohol) Alcohol Screening: None Lives: With family - Immunizations Tetanus Shot up to Date: Yes Physical Exam - Physical Exam Appearance: Well-appearing, No pain distress, Well-nourished Pain Distress: Mild Eyes: JENY, EOMI, Conjunctiva clear ENT: Ears normal, Nose normal, Oropharynx normal Neck: Supple Respiratory: Airway patent, Breath sounds clear, Breath sounds equal, Respirations nonlabored Cardiovascular: RRR, Pulses normal, No rub, No murmur GI/: Soft, Nontender, No masses, Bowel sounds normal, No Organomegaly Musculoskeletal: Normal strength, ROM intact, No edema, No calf tenderness Skin: Warm, Dry, Normal color Neurological: Sensation intact, Motor intact, Reflexes intact, Cranial nerves intact, Alert, Oriented Psychiatric: Affect appropriate, Mood appropriate Critical Care Note - Critical Care Note Total Time (mins): 0 Course - Course Orders, Labs, Meds: Orders Category Date Time Status Hydrocodone Bit/Acetaminophen [[place] 5-325] MEDS 06/11/16 01:11 Discontinued 1 tab PO ONCE STA Medications Discontinued Medications Generic Name Dose Route Start Last Admin Trade Name Freq PRN Reason Stop Dose Admin Acetaminophen/Hydrocodone Bitart 1 tab 06/11/16 01:11 [place] 5-325 PO 06/11/16 01:12 ONCE STA Vital Signs: Temp Pulse Resp BP Pulse Ox 06/11/16 00:18 98.4 F 88 18 155/90 H 96 Departure - Departure Time of Disposition: : Disposition: HOME SELF-CARE Discharge Problem: Chronic low back pain Qualifiers: Back pain laterality: bilateral Sciatica presence: without sciatica Qualifier Code: (M54.5) Low back pain Instructions: Chronic Back Pain (ED) Condition: Good Pt referred to PMD for follow-up: Yes Additional Instructions: f/u wtih pcp Allergies/Adverse Reactions: Allergies aspirin Adverse Reaction (Verified 06/11/16 00:27) Penicillins Adverse Reaction (Verified 06/11/16 00:27) Home Medications: Ambulatory Orders Carvedilol [Coreg] 25 mg PO BID 01/29/15 Hydralazine HCl 25 mg PO DAILY 03/27/15 Clonidine HCl 0.2 mg PO TID 09/14/15 Amlodipine Besylate 10 mg PO DAILY 10/16/15 Cholecalciferol (Vitamin D3) [Vitamin D3] 2,000 unit PO DAILY 12/03/15 Acetaminophen [Tylenol Arthritis] 650 mg PO Q4-6H PRN #100 tablet.er 12/04/15 Albuterol Sulfate [Proair Hfa] 2 puff IH Q6H PRN #1 inhaler 03/04/16 Clopidogrel Bisulfate [Plavix] 75 mg PO DAILY 04/15/16 Atorvastatin Calcium 40 mg PO BEDTIME 04/28/16 Calcium Carbonate/Vitamin D3 [Calcium 500 + Vit D3 400 Tab] 1 each PO DAILY Nitroglycerin [Nitrostat] 0.4 mg SL Q5MIN X 3 DOSES PRN 04/28/16 Sevelamer HCl [Renagel] 1,600 mg PO QID 04/28/16 Ranitidine HCl [Zantac] 150 mg PO BIDAC #20 tablet 05/05/16 Sucralfate Susp [Carafate] 1 gm PO ACHS #1 bottle 05/05/16 Ondansetron HCl [Zofran Tab] 4 mg PO Q8H PRN #14 tablet 05/29/16 Disposition Discussed With: Patient
== END 2016-06-11 01:24 | disposition home or self-care (01) ==
LOC: ED 00:18
DX: M54.5 Low back pain (principal); I10 Essential (primary) hypertension; F17.210 Nicotine dependence, cigarettes, uncomplicated
CPT/HCPCS: 99283

== ENCOUNTER 2016-06-12 18:04 | Emergency (ER) ==
[2016-06-12 18:04] VITALS: BMI 23.6
[2016-06-12 18:08] VITALS: BP 170/134; TEMP 98
--- NOTE | 2016-06-12 18:34 | ED.PDOC ---
[id number] low back pain Time Seen by Physician: 18:07 Mode of Arrival: Walk-In Information Source: Patient Exam Limitations: No limitations Primary Care Provider: MARSHALL PEREZ Nursing and Triage Documentation Reviewed and Agree: Yes Musculoskeletal Complaint Exam - Back Pain Complaint/Exam Mechanism of Injury: Reports: No known trauma Symptoms Are: Still present Timing: Constant Episodes Lasting: Hours Initial Severity: Mild Current Severity: Mild Location: Reports: Discrete Character: Reports: Aching Aggravating: Reports: None Alleviating: Reports: None Cauda Equina Risk Factors: Reports: None Epidural Abcess Risk Factors: Reports: None Related Surgical History: Reports: None Focal Tenderness: No Paraspinal Muscle Tenderness: No Paraspinal Muscle Spasm: No Scoliosis: No Lordosis: No Kyphosis: No SLR Test: Right Negative, Left Negative Hip Motion Testing Pain: Right Negative, Left Negative Focal Weakness: Present: None Focal Sensory Loss: Present: None Gait: Present: Normal Differential Diagnoses: Arthritis, Strain, Sprain Review of Systems - Review Of Systems Constitutional: Reports: No symptoms Eyes: Reports: No symptoms Ears, Nose, Mouth, Throat: Reports: No symptoms Respiratory: Reports: No symptoms Cardiac: Reports: No symptoms GI: Reports: No symptoms : Reports: No symptoms Musculoskeletal: Reports: Back pain Skin: Reports: No symptoms Neurological: Reports: No symptoms Endocrine: Reports: No symptoms Hematologic/Lymphatic: Reports: No symptoms All Other Systems: Reviewed and Negative Past Medical History - Past Medical History Previously Healthy: No Endocrine: Reports: None Cardiovascular: Reports: CAD (s/p stent dr luna 04-24), [place], Hypertension ( Uncontrolled ), CHF Respiratory: Reports: COPD, Asthma, Pneumonia Hematological: Reports: Anemia Gastrointestinal: Reports: PUD, GERD Genitourinary: Reports: Kidney stones, CKD Neuro/Psych: Reports: TIA, 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 Denies: Hysterectomy (D&C) - Family History Family History: Reports: Unknown - Social History Smoking Status: Current every day smoker Hx Substance Use: Yes (HX: alcohol) Alcohol Screening: None Physical Exam - Physical Exam Appearance: Well-appearing, No pain distress, Well-nourished Eyes: JENY, EOMI, Conjunctiva clear ENT: Ears normal, Nose normal, Oropharynx normal Respiratory: Airway patent, Breath sounds clear, Breath sounds equal, Respirations nonlabored Cardiovascular: RRR, Pulses normal, No rub, No murmur GI/: Soft, Nontender, No masses, Bowel sounds normal, No Organomegaly Musculoskeletal: Normal strength, ROM intact, No edema, No calf tenderness Skin: Warm, Dry, Normal color Neurological: Sensation intact, Motor intact, Reflexes intact, Cranial nerves intact, Alert, Oriented Psychiatric: Affect appropriate, Mood appropriate Critical Care Note - Critical Care Note Total Time (mins): 0 Course - Course Vital Signs: Temp Pulse Resp BP Pulse Ox 06/12/16 18:04 98.0 F 104 H 18 170/134 H 96 Departure - Departure Time of Disposition: 18:33 Disposition: HOME SELF-CARE Discharge Problem: Backache Instructions: Back Pain (ED) Condition: Good Pt referred to PMD for follow-up: No Prescriptions: Hydrocodone/Acetaminophen [[place] 5-325 Tablet] 1 each PO Q6HR PRN #3 tablet PRN Reason: PAIN Allergies/Adverse Reactions: Allergies aspirin Adverse Reaction (Verified 06/12/16 18:09) Penicillins Adverse Reaction (Verified 06/12/16 18:09) Home Medications: Ambulatory Orders Carvedilol [Coreg] 25 mg PO BID 01/29/15 Hydralazine HCl 25 mg PO DAILY 03/27/15 Clonidine HCl 0.2 mg PO TID 09/14/15 Amlodipine Besylate 10 mg PO DAILY 10/16/15 Cholecalciferol (Vitamin D3) [Vitamin D3] 2,000 unit PO DAILY 12/03/15 Acetaminophen [Tylenol Arthritis] 650 mg PO Q4-6H PRN #100 tablet.er 12/04/15 Albuterol Sulfate [Proair Hfa] 2 puff IH Q6H PRN #1 inhaler 03/04/16 Clopidogrel Bisulfate [Plavix] 75 mg PO DAILY 04/15/16 Atorvastatin Calcium 40 mg PO BEDTIME 04/28/16 Calcium Carbonate/Vitamin D3 [Calcium 500 + Vit D3 400 Tab] 1 each PO DAILY Nitroglycerin [Nitrostat] 0.4 mg SL Q5MIN X 3 DOSES PRN 04/28/16 Sevelamer HCl [Renagel] 1,600 mg PO QID 04/28/16 Ranitidine HCl [Zantac] 150 mg PO BIDAC #20 tablet 05/05/16 Sucralfate Susp [Carafate] 1 gm PO ACHS #1 bottle 05/05/16 Ondansetron HCl [Zofran Tab] 4 mg PO Q8H PRN #14 tablet 05/29/16 Hydrocodone/Acetaminophen [[place] 5-325 Tablet] 1 each PO Q6HR PRN #3 tablet 10/22
== END 2016-06-12 18:39 | disposition home or self-care (01) ==
LOC: ED 18:04
DX: M54.5 Low back pain (principal); I10 Essential (primary) hypertension; F17.210 Nicotine dependence, cigarettes, uncomplicated
CPT/HCPCS: 99282; 99283

== ENCOUNTER 2016-06-17 21:40 | Emergency (ER) ==
[2016-06-17 21:47] VITALS: BP 168/120; TEMP 98.6; BMI 24.0
--- NOTE | 2016-06-17 21:57 | ED.PDOC ---
General ED Provider: Dr. INDIGO NICHOLSON-ER Chief Complaint: Cough Stated Complaint: toñito got this runny nose and a cough--im not sob or running a fever or coughing anything yellow or green Time Seen by Physician: 21:45 Mode of Arrival: Walk-In Information Source: Patient Exam Limitations: No limitations Primary Care Provider: MARSHALL PEREZ Nursing and Triage Documentation Reviewed and Agree: Yes Respiratory Complaint Exam - Respiratory Complaint/Exam Onset/Duration: 24hrs Symptoms Are: Still present Timing: Intermittent Initial Severity: Mild Current Severity: Mild Location: Nose, Chest Character: Reports: Non-productive cough Aggravating: Reports: URI Alleviating: Reports: None Associated Signs and Symptoms: Reports: URI, Nasal congestion. Denies: Rapid breathing, Dyspnea, Fever, Chills, Chest pain, Pleuritic chest pain, Wheezing, Hemoptysis, Dizziness, Calf pain, Calf swelling, Edema, Hoarseness, Sinus discomfort, Vomiting, Sore throat, Weight loss, Decreased oral intake, Increased thirst, Increased appetite, Increased urination Related History: Reports: Similar episode History of Healthcare-Acquired Pneumonia: No Related Surgical History: Reports: Renal Failure Cardiac Risk Factors: Reports: CAD, Elevated lipids, Hypertension Tuberculosis Risk Factors: Reports: None Status Asthmaticus Risk Factors: Reports: None Home Oxygen Use: No Recent Stress Test: No Recent Echo/LV Function: No Current Antibiotic Use: No Current Asthma Medication Use: No Respiratory Distress: None Inadequate Respiratory Effort: No Dysphagia Present: No Stridor Present: No JVD Present: No Accessory Muscle Use: No Retractions: Not Present Diminished Breath Sounds: No Sinus Tenderness: None Grunting Respirations: No Kussmaul Respirations: No Differential Diagnoses: URI Review of Systems - Review Of Systems Constitutional: Reports: No symptoms Eyes: Reports: No symptoms Ears, Nose, Mouth, Throat: Reports: Nose discharge Respiratory: Reports: Cough Cardiac: Reports: No symptoms GI: Reports: No symptoms : Reports: No symptoms Musculoskeletal: Reports: No symptoms Skin: Reports: No symptoms Neurological: Reports: No symptoms Endocrine: Reports: No symptoms Hematologic/Lymphatic: Reports: No symptoms All Other Systems: Reviewed and Negative Past Medical History - Past Medical History Previously Healthy: No Endocrine: Reports: None Cardiovascular: Reports: CAD (s/p stent dr luna 04-24), [place], Hypertension ( Uncontrolled ), CHF Respiratory: Reports: COPD, Asthma, Pneumonia Hematological: Reports: Anemia Gastrointestinal: Reports: PUD, GERD Genitourinary: Reports: Kidney stones, CKD Neuro/Psych: Reports: TIA, 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 Denies: Hysterectomy (D&C) - Family History Family History: Reports: Unknown - Social History Smoking Status: Current every day smoker, Light tobacco smoker Hx Substance Use: Yes (HX: alcohol) Alcohol Screening: None - Immunizations Tetanus Shot up to Date: Yes Physical Exam - Physical Exam Appearance: Well-appearing, No pain distress, Well-nourished Eyes: JENY, EOMI, Conjunctiva clear ENT: Rhinorrhea Neck: Supple Respiratory: Airway patent Cardiovascular: RRR, Pulses normal, No rub, No murmur GI/: Soft, Nontender, No masses, Bowel sounds normal, No Organomegaly Musculoskeletal: Normal strength, ROM intact, No edema, No calf tenderness Skin: Warm Neurological: Sensation intact Psychiatric: Affect appropriate, Mood appropriate Critical Care Note - Critical Care Note Total Time (mins): 0 Course - Course Vital Signs: Temp Pulse Resp BP Pulse Ox 06/17/16 21:42 98.6 F 99 H 20 168/120 H 99 Departure - Departure Time of Disposition: 21:57 Disposition: HOME SELF-CARE Discharge Problem: Rhinitis Qualifiers: Rhinitis type: unspecified Qualifier Code: (J31.0) Chronic rhinitis Instructions: Upper Respiratory Infection (ED) Condition: Fair Pt referred to PMD for follow-up: Yes Additional Instructions: flonase nasal spray one puff each nostril bid--tessalon perles 100mg tid prn #21 --keep appt [facility] tomorrow Allergies/Adverse Reactions: Allergies aspirin Adverse Reaction (Verified 06/17/16 21:49) Penicillins Adverse Reaction (Verified 06/17/16 21:49) Home Medications: Ambulatory Orders Carvedilol [Coreg] 25 mg PO BID 01/29/15 Hydralazine HCl 25 mg PO DAILY 03/27/15 Clonidine HCl 0.2 mg PO TID 09/14/15 Amlodipine Besylate 10 mg PO DAILY 10/16/15 Cholecalciferol (Vitamin D3) [Vitamin D3] 2,000 unit PO DAILY 12/03/15 Acetaminophen [Tylenol Arthritis] 650 mg PO Q4-6H PRN #100 tablet.er 12/04/15 Albuterol Sulfate [Proair Hfa] 2 puff IH Q6H PRN #1 inhaler 03/04/16 Clopidogrel Bisulfate [Plavix] 75 mg PO DAILY 04/15/16 Atorvastatin Calcium 40 mg PO BEDTIME 04/28/16 Calcium Carbonate/Vitamin D3 [Calcium 500 + Vit D3 400 Tab] 1 each PO DAILY Nitroglycerin [Nitrostat] 0.4 mg SL Q5MIN X 3 DOSES PRN 04/28/16 Sevelamer HCl [Renagel] 1,600 mg PO QID 04/28/16 Ranitidine HCl [Zantac] 150 mg PO BIDAC #20 tablet 05/05/16 Sucralfate Susp [Carafate] 1 gm PO ACHS #1 bottle 05/05/16 Ondansetron HCl [Zofran Tab] 4 mg PO Q8H PRN #14 tablet 05/29/16 Hydrocodone/Acetaminophen [[place] 5-325 Tablet] 1 each PO Q6HR PRN #3 tablet 10/22 Disposition Discussed With: Patient
== END 2016-06-17 22:14 | disposition home or self-care (01) ==
LOC: ED 21:40
DX: J31.0 Chronic rhinitis (principal); F17.210 Nicotine dependence, cigarettes, uncomplicated
CPT/HCPCS: 99282

== ENCOUNTER 2016-06-25 23:00 | Emergency (ER) ==
[2016-06-25 23:08] VITALS: BP 151/97; TEMP 99.8; BMI 212.9
--- NOTE | 2016-06-25 23:13 | ED.PDOC ---
General ED Provider: Dr. INDIGO NICHLOSON-ER Chief Complaint: Knee Pain/Injury Stated Complaint: my knee was hurting but not anymore--now my back hurts Time Seen by Physician: 23:11 Mode of Arrival: Walk-In Information Source: Patient Exam Limitations: No limitations Primary Care Provider: MARSHALL PEREZ Nursing and Triage Documentation Reviewed and Agree: No Musculoskeletal Complaint Exam - Back Pain Complaint/Exam Mechanism of Injury: Reports: No known trauma Onset/Duration: several mos Symptoms Are: Still present Timing: Constant Episodes Lasting: Weeks Initial Severity: Mild Current Severity: Mild Location: Reports: Discrete (low back pain) Character: Reports: Dull, Aching Aggravating: Reports: Movements, Lifting, Bending, Walking Alleviating: Reports: None Associated Signs and Symptoms: Denies: Swelling, Redness, Bruising, Fever, Weakness, Numbness, Tingling, Abdominal pain, Flank pain, Bladder incontinence, Bowel incontinence, Weight loss, Pain with weight bearing Related History: Reports: Similar episode TAD Risk Factors: Reports: Hypertension AAA Risk Factors: Reports: Hypertension Cauda Equina Risk Factors: Reports: None Epidural Abcess Risk Factors: Reports: None Focal Tenderness: Yes Paraspinal Muscle Tenderness: Yes Paraspinal Muscle Spasm: No Scoliosis: No Lordosis: No Kyphosis: No SLR Test: Right Negative, Left Negative Hip Motion Testing Pain: Right Negative, Left Negative Focal Weakness: Present: None Focal Sensory Loss: Present: None Gait: Present: Normal Differential Diagnoses: Other Review of Systems - Review Of Systems Constitutional: Reports: No symptoms Eyes: Reports: No symptoms Ears, Nose, Mouth, Throat: Reports: No symptoms Respiratory: Reports: No symptoms Cardiac: Reports: No symptoms GI: Reports: No symptoms : Reports: No symptoms Musculoskeletal: Reports: Back pain, Joint pain (but resolved now) Skin: Reports: No symptoms Neurological: Reports: No symptoms Endocrine: Reports: No symptoms Hematologic/Lymphatic: Reports: No symptoms All Other Systems: Reviewed and Negative Past Medical History - Past Medical History Previously Healthy: No Endocrine: Reports: None Cardiovascular: Reports: CAD (s/p stent dr luna 04-24), [place], Hypertension ( Uncontrolled ), CHF Respiratory: Reports: COPD, Asthma, Pneumonia Hematological: Reports: Anemia Gastrointestinal: Reports: PUD, GERD Genitourinary: Reports: Kidney stones, CKD Neuro/Psych: Reports: TIA, 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 Denies: Hysterectomy (D&C) - Family History Family History: Reports: Unknown - Social History Smoking Status: Current every day smoker, Light tobacco smoker Hx Substance Use: Yes (HX: alcohol) Alcohol Screening: None Lives: With family - Immunizations Tetanus Shot up to Date: Yes Physical Exam - Physical Exam Appearance: Well-appearing, No pain distress, Well-nourished Pain Distress: Mild Eyes: JENY, EOMI, Conjunctiva clear ENT: Ears normal, Nose normal, Oropharynx normal Neck: Supple Respiratory: Airway patent, Breath sounds clear, Breath sounds equal, Respirations nonlabored Cardiovascular: RRR, Pulses normal, No rub, No murmur GI/: Soft, Nontender, No masses, Bowel sounds normal, No Organomegaly Musculoskeletal: Normal strength Skin: Warm, Dry, Normal color Neurological: Sensation intact, Motor intact, Reflexes intact, Cranial nerves intact, Alert, Oriented Psychiatric: Affect appropriate, Mood appropriate Critical Care Note - Critical Care Note Total Time (mins): 0 Course - Course Vital Signs: Temp Pulse Resp BP Pulse Ox 06/25/16 23:02 99.8 F H 97 H 18 151/97 H 97 Departure - Departure Time of Disposition: 23:13 Disposition: HOME SELF-CARE Discharge Problem: Chronic low back pain Qualifiers: Back pain laterality: unspecified Sciatica presence: without sciatica Qualifier Code: (M54.5) Low back pain Instructions: Chronic Back Pain (ED) Condition: Good Pt referred to PMD for follow-up: Yes Additional Instructions: f/u with pcp and pain managment Allergies/Adverse Reactions: Allergies aspirin Adverse Reaction (Verified 06/25/16 23:08) Penicillins Adverse Reaction (Verified 06/25/16 23:08) Home Medications: Ambulatory Orders Carvedilol [Coreg] 25 mg PO BID 01/29/15 Hydralazine HCl 25 mg PO DAILY 03/27/15 Clonidine HCl 0.2 mg PO TID 09/14/15 Amlodipine Besylate 10 mg PO DAILY 10/16/15 Cholecalciferol (Vitamin D3) [Vitamin D3] 2,000 unit PO DAILY 12/03/15 Acetaminophen [Tylenol Arthritis] 650 mg PO Q4-6H PRN #100 tablet.er 12/04/15 Albuterol Sulfate [Proair Hfa] 2 puff IH Q6H PRN #1 inhaler 03/04/16 Clopidogrel Bisulfate [Plavix] 75 mg PO DAILY 04/15/16 Atorvastatin Calcium 40 mg PO BEDTIME 04/28/16 Calcium Carbonate/Vitamin D3 [Calcium 500 + Vit D3 400 Tab] 1 each PO DAILY Nitroglycerin [Nitrostat] 0.4 mg SL Q5MIN X 3 DOSES PRN 04/28/16 Sevelamer HCl [Renagel] 1,600 mg PO QID 04/28/16 Ranitidine HCl [Zantac] 150 mg PO BIDAC #20 tablet 05/05/16 Sucralfate Susp [Carafate] 1 gm PO ACHS #1 bottle 05/05/16 Ondansetron HCl [Zofran Tab] 4 mg PO Q8H PRN #14 tablet 05/29/16 Hydrocodone/Acetaminophen [[place] 5-325 Tablet] 1 each PO Q6HR PRN #3 tablet 10/22 Disposition Discussed With: Patient
[2016-06-25] MEDS ORDERED: NORCO 5-325 PO STA (23:14)
== END 2016-06-25 23:23 | disposition home or self-care (01) ==
LOC: ED 23:00
DX: M54.5 Low back pain (principal); I10 Essential (primary) hypertension; F17.210 Nicotine dependence, cigarettes, uncomplicated
CPT/HCPCS: 99282; 99283

== ENCOUNTER 2016-07-01 02:13 | Emergency (ER) ==
[2016-07-01 02:21] VITALS: BP 147/93; TEMP 98.2; BMI 24.3
[2016-07-01] MEDS ORDERED: NORCO 5-325 PO STA (03:44)
--- NOTE | 2016-07-01 03:47 | ED.PDOC ---
General ED Provider: Dr. INDIGO NICHOLSON-ER Chief Complaint: Extremity Pain/Injury Stated Complaint: my shoulder hurts to move it Time Seen by Physician: 02:15 Mode of Arrival: Walk-In Information Source: Patient Exam Limitations: No limitations Primary Care Provider: MARSHALL PEREZ Nursing and Triage Documentation Reviewed and Agree: Yes Musculoskeletal Complaint Exam - Shoulder Pain Complaint/Exam Mechanism of Injury: Reports: No known trauma Onset/Duration: several weeks Symptoms Are: Still present Timing: Intermittent Initial Severity: Mild Current Severity: Mild Location: Reports: Discrete (left shoulder) Character: Reports: Dull, Aching Alleviating: Reports: None Aggravating: Reports: Movement, Lifting, Flexion, Extension, Internal rotation, External rotation Associated Signs and Symptoms: Denies: Swelling, Redness, Bruising, Fever, Weakness, Numbness, Tingling Related History: Reports: Similar episode Non-Orthopedic Risk Factors: Reports: None DVT Risk Factors: Reports: None Septic Arthritis Risk Factors: Reports: None Related Surgical History: Reports: None Tenderness: Present: Rotator cuff muscles Limited Range of Motion: Present: Abduction, Adduction, Flexion, Extension Differential Diagnoses: Sprain, Strain Review of Systems - Review Of Systems Constitutional: Reports: No symptoms Eyes: Reports: No symptoms Ears, Nose, Mouth, Throat: Reports: No symptoms Respiratory: Reports: No symptoms Cardiac: Reports: No symptoms GI: Reports: No symptoms : Reports: No symptoms Musculoskeletal: Reports: Joint pain Skin: Reports: No symptoms Neurological: Reports: No symptoms Endocrine: Reports: No symptoms Hematologic/Lymphatic: Reports: No symptoms All Other Systems: Reviewed and Negative Past Medical History - Past Medical History Previously Healthy: No Endocrine: Reports: None Cardiovascular: Reports: CAD (s/p stent dr luna 04-24), [place], Hypertension ( Uncontrolled ), CHF Respiratory: Reports: COPD, Asthma, Pneumonia Hematological: Reports: Anemia Gastrointestinal: Reports: PUD, GERD Genitourinary: Reports: Kidney stones, CKD Neuro/Psych: Reports: TIA, 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 Denies: Hysterectomy (D&C) - Family History Family History: Reports: Unknown - Social History Smoking Status: Current every day smoker, Light tobacco smoker Hx Substance Use: Yes (HX: alcohol) Alcohol Screening: None - Immunizations Tetanus Shot up to Date: Yes Physical Exam - Physical Exam Appearance: Well-appearing, No pain distress, Well-nourished Eyes: JENY, EOMI, Conjunctiva clear ENT: Ears normal Neck: Supple Respiratory: Airway patent, Breath sounds clear, Breath sounds equal, Respirations nonlabored Cardiovascular: RRR, Pulses normal, No rub, No murmur GI/: Soft, Nontender, No masses, Bowel sounds normal, No Organomegaly Musculoskeletal: Limited ROM Skin: Warm, Dry, Normal color Neurological: Sensation intact, Motor intact, Reflexes intact, Cranial nerves intact, Alert, Oriented Psychiatric: Affect appropriate, Mood appropriate Critical Care Note - Critical Care Note Total Time (mins): 0 Course - Course Orders, Labs, Meds: Orders Category Date Time Status Hydrocodone Bit/Acetaminophen [[place] 5-325] MEDS 07/01/16 03:44 Stat 1 tab PO ONCE STA CERVICAL SPINE, 2 OR 3 VIEWS Stat RADS 07/01/16 02:32 Taken ELBOW, LEFT MIN 3 VIEWS Stat RADS 07/01/16 02:32 Taken SHOULDER, LEFT MIN 2V Stat RADS 07/01/16 02:32 Taken Vital Signs: Temp Pulse Resp BP Pulse Ox 07/01/16 02:13 98.2 F 93 H 20 147/93 H 98 Departure - Departure Time of Disposition: 03:47 Disposition: HOME SELF-CARE Discharge Problem: Acute shoulder pain Qualifiers: Laterality: left Qualifier Code: (M25.512) Pain in left shoulder Instructions: Arthralgia (ED) Condition: Good Pt referred to PMD for follow-up: Yes Additional Instructions: f/u with pcsp Allergies/Adverse Reactions: Allergies aspirin Adverse Reaction (Verified 07/01/16 02:24) Penicillins Adverse Reaction (Verified 07/01/16 02:24) Home Medications: Ambulatory Orders Carvedilol [Coreg] 25 mg PO BID 01/29/15 Hydralazine HCl 25 mg PO DAILY 03/27/15 Clonidine HCl 0.2 mg PO TID 09/14/15 Amlodipine Besylate 10 mg PO DAILY 10/16/15 Cholecalciferol (Vitamin D3) [Vitamin D3] 2,000 unit PO DAILY 12/03/15 Acetaminophen [Tylenol Arthritis] 650 mg PO Q4-6H PRN #100 tablet.er 12/04/15 Albuterol Sulfate [Proair Hfa] 2 puff IH Q6H PRN #1 inhaler 03/04/16 Clopidogrel Bisulfate [Plavix] 75 mg PO DAILY 04/15/16 Atorvastatin Calcium 40 mg PO BEDTIME 04/28/16 Calcium Carbonate/Vitamin D3 [Calcium 500 + Vit D3 400 Tab] 1 each PO DAILY Nitroglycerin [Nitrostat] 0.4 mg SL Q5MIN X 3 DOSES PRN 04/28/16 Sevelamer HCl [Renagel] 1,600 mg PO QID 04/28/16 Ranitidine HCl [Zantac] 150 mg PO BIDAC #20 tablet 05/05/16 Sucralfate Susp [Carafate] 1 gm PO ACHS #1 bottle 05/05/16 Ondansetron HCl [Zofran Tab] 4 mg PO Q8H PRN #14 tablet 05/29/16 Hydrocodone/Acetaminophen [[place] 5-325 Tablet] 1 each PO Q6HR PRN #3 tablet 10/22 Disposition Discussed With: Patient
--- NOTE | 2016-07-01 04:27 | DI ---
Exam: Cervical spine four views History: Cervical spine pain FINDINGS: Frontal, lateral, odontoid and swimmers projections. Vertebral body height is maintained . There is degenerative anterior listhesis of C5 measuring about 3 mm. Focal disc space narrowing and endplate spondylosis at C5-C6. No fracture lines are suspicious bony lesions are seen. Normal prevertebral soft tissues. Impression: 1. Focal disc changes and degenerative listhesis at C5-C6. No acute abnormalities of the cervical spine are seen.
--- NOTE | 2016-07-01 04:31 | DI ---
EXAM: Left shoulder three view HISTORY: Shoulder pain FINDING/IMPRESSION: No bony or articular abnormality. Normal exam.
--- NOTE | 2016-07-01 04:32 | DI ---
Exam: Left elbow three views HISTORY: Elbow injury and pain Findings / impression: No significant bony or articular abnormality. Negative exam.
[2016-07-01] MEDS ORDERED: NORCO 7.5-325 ONE (13:24)
[2016-07-01] MEDS ORDERED: TORADOL ONE (13:28)
== END 2016-07-01 03:57 | disposition home or self-care (01) ==
LOC: ED 02:13
DX: M25.512 Pain in left shoulder (principal); I10 Essential (primary) hypertension; S43.402A Unspecified sprain of left shoulder joint, initial encounter; R07.9 Chest pain, unspecified; N18.5 Chronic kidney disease, stage 5; I25.10 Atherosclerotic heart disease of native coronary artery without angina pectoris; J44.9 Chronic obstructive pulmonary disease, unspecified; I50.9 Heart failure, unspecified; D64.9 Anemia, unspecified; I25.2 Old myocardial infarction; Z95.5 Presence of coronary angioplasty implant and graft; F17.210 Nicotine dependence, cigarettes, uncomplicated; Z79.899 Other long term (current) drug therapy
CPT/HCPCS: 36415; 80053; 82550; 82553; 83880; 84484; 85025; 93005; 93010; 96372; 96375; 99282; 99285

== ENCOUNTER 2016-07-01 12:59 | Emergency (ER) ==
[2016-07-01 12:59] VITALS: BMI 24.3
[2016-07-01] MEDS ORDERED: NORCO 7.5-325 PO STA (13:19)
[2016-07-01 13:21] VITALS: BP 153/98; TEMP 96.8
--- NOTE | 2016-07-01 13:22 | ED.PDOC ---
General ED Provider: Dr. KADE ARSHAD Chief Complaint: Extremity Pain/Injury Stated Complaint: been hurting in the left shoulder for 5 days, taking otc meds not helping, hurts to raise shoulder. no injury. she was seen by Dr Zabala yesterday for the same reason. Time Seen by Physician: 13:19 Mode of Arrival: Walk-In Information Source: Patient Primary Care Provider: MARSHALL PEREZ Nursing and Triage Documentation Reviewed and Agree: Yes Musculoskeletal Complaint Exam - Shoulder Pain Complaint/Exam Mechanism of Injury: Reports: No known trauma Symptoms Are: Still present Timing: Constant Initial Severity: Moderate Current Severity: Mild Location: Reports: Discrete Character: Reports: Aching, Throbbing Alleviating: Reports: None Aggravating: Reports: Movement, Lifting Associated Signs and Symptoms: Denies: Swelling, Redness, Bruising, Fever, Weakness, Numbness, Tingling Related History: Reports: Similar episode Non-Orthopedic Risk Factors: Reports: None DVT Risk Factors: Reports: None Septic Arthritis Risk Factors: Reports: None Related Surgical History: Reports: None Shoulder Findings: Present: Swelling. Absent: Abnormal contour, Rotation, Warmth, Blisters Differential Diagnoses: Rotator Cuff Injury, Sprain, Strain Review of Systems - Review Of Systems Constitutional: Reports: No symptoms Eyes: Reports: No symptoms Ears, Nose, Mouth, Throat: Reports: No symptoms Respiratory: Reports: No symptoms Cardiac: Reports: No symptoms GI: Reports: No symptoms : Reports: No symptoms Musculoskeletal: Reports: Joint pain Skin: Reports: No symptoms Neurological: Reports: No symptoms Endocrine: Reports: No symptoms Hematologic/Lymphatic: Reports: No symptoms All Other Systems: Reviewed and Negative Past Medical History - Past Medical History Previously Healthy: No Endocrine: Reports: None Cardiovascular: Reports: CAD (s/p stent dr luna 04-24), [place], Hypertension ( Uncontrolled ), CHF Respiratory: Reports: COPD, Asthma, Pneumonia Hematological: Reports: Anemia Gastrointestinal: Reports: PUD, GERD Genitourinary: Reports: Kidney stones, CKD Neuro/Psych: Reports: TIA, 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 Denies: Hysterectomy (D&C) - Family History Family History: Reports: Unknown - Social History Smoking Status: Current every day smoker, Light tobacco smoker Smoking Cessation Counseling Time: > 3 min - 10 min Hx Substance Use: Yes (HX: alcohol) Alcohol Screening: None - Immunizations Tetanus Shot up to Date: Yes Physical Exam - Physical Exam Appearance: Well-appearing, Well-nourished Pain Distress: Mild Eyes: JENY, EOMI, Conjunctiva clear ENT: Ears normal, Nose normal, Oropharynx normal Respiratory: Airway patent, Breath sounds clear, Breath sounds equal, Respirations nonlabored Cardiovascular: RRR, Pulses normal, No rub, No murmur GI/: Soft, Nontender, No masses, Bowel sounds normal, No Organomegaly Musculoskeletal: ROM intact, No edema, No calf tenderness, Limited ROM (left shoulder, there is tender spot on the left shoulder, good radial pulse.) Skin: Warm, Dry, Normal color Neurological: Sensation intact, Motor intact, Reflexes intact, Cranial nerves intact, Alert, Oriented Psychiatric: Affect appropriate, Mood appropriate Critical Care Note - Critical Care Note Total Time (mins): 0 Course - Course Orders, Labs, Meds: Orders Category Date Time Status Hydrocodone Bit/Acetaminophen [[place] 7.5-325] MEDS 07/01/16 13:19 Discontinued 1 tab PO ONCE STA SHOULDER, LEFT MIN 2V Stat RADS 07/01/16 13:19 Ordered Medications Discontinued Medications Generic Name Dose Route Start Last Admin Trade Name Memoq PRN Reason Stop Dose Admin Acetaminophen/Hydrocodone Bitart 1 tab 07/01/16 13:19 [place] 7.5-325 PO 07/01/16 13:20 ONCE STA Vital Signs: Temp Pulse Resp BP Pulse Ox 07/01/16 12:59 96.8 F L 91 H 16 153/98 H 92 L Departure - Departure Time of Disposition: 13:28 Disposition: HOME SELF-CARE Discharge Problem: Shoulder sprain Qualifiers: Encounter type: initial encounter Shoulder sprain type: unspecified sprain Laterality: left Qualifier Code: (S43.402A) Unspecified sprain of left shoulder joint, initial encounter Instructions: Shoulder Sprain (ED) Condition: Stable Pt referred to PMD for follow-up: Yes Additional Instructions: keep f/u with PMD flexeril 5 po bid x 10 Prescriptions: Cyclobenzaprine HCl [Flexeril] 5 mg PO BID #14 tablet Allergies/Adverse Reactions: Allergies aspirin Adverse Reaction (Verified 07/01/16 13:07) Penicillins Adverse Reaction (Verified 07/01/16 13:07) Home Medications: Ambulatory Orders Carvedilol [Coreg] 25 mg PO BID 01/29/15 Hydralazine HCl 25 mg PO DAILY 03/27/15 Clonidine HCl 0.2 mg PO TID 09/14/15 Amlodipine Besylate 10 mg PO DAILY 10/16/15 Cholecalciferol (Vitamin D3) [Vitamin D3] 2,000 unit PO DAILY 12/03/15 Albuterol Sulfate [Proair Hfa] 2 puff IH Q6H PRN #1 inhaler 03/04/16 Clopidogrel Bisulfate [Plavix] 75 mg PO DAILY 04/15/16 Atorvastatin Calcium 40 mg PO BEDTIME 04/28/16 Calcium Carbonate/Vitamin D3 [Calcium 500 + Vit D3 400 Tab] 1 each PO DAILY Nitroglycerin [Nitrostat] 0.4 mg SL Q5MIN X 3 DOSES PRN 04/28/16 Sevelamer HCl [Renagel] 1,600 mg PO QID 04/28/16 Ranitidine HCl [Zantac] 150 mg PO BIDAC #20 tablet 05/05/16 Sucralfate Susp [Carafate] 1 gm PO ACHS #1 bottle 05/05/16 Ondansetron HCl [Zofran Tab] 4 mg PO Q8H PRN #14 tablet 05/29/16 Hydrocodone/Acetaminophen [[place] 5-325 Tablet] 1 each PO Q6HR PRN #3 tablet 10/22 Cyclobenzaprine HCl [Flexeril] 5 mg PO BID #14 tablet 07/01/16 Disposition Discussed With: Patient
[2016-07-01] MEDS ORDERED: TORADOL IM STA (13:24)
== END 2016-07-01 13:50 | disposition home or self-care (01) ==
LOC: ED 12:59
DX: S43.402A Unspecified sprain of left shoulder joint, initial encounter (principal); F17.210 Nicotine dependence, cigarettes, uncomplicated; Z79.899 Other long term (current) drug therapy
CPT/HCPCS: 96372; 99282

== ENCOUNTER 2016-07-01 19:51 | Emergency (ER) ==
[2016-07-01 19:57] VITALS: BP 176/126; TEMP 96.8; BMI 24.7
--- NOTE | 2016-07-01 20:05 | ED.PDOC ---
General ED Provider: Dr. INDIGO NICHOLSON-ER Chief Complaint: Chest Pain Stated Complaint: my chest hurts and im having trouble breathing--my legs are swollen too Time Seen by Physician: 19:55 Mode of Arrival: Walk-In Information Source: Patient Exam Limitations: No limitations Primary Care Provider: MARSHALL PEREZ Nursing and Triage Documentation Reviewed and Agree: Yes Respiratory Complaint Exam - Shortness of Air Complaint/Exam Onset/Duration: 1/12 hr Symptoms Are: Still present Initial Severity: Mild Current Severity: Mild Character: Reports: Dyspnea at rest Aggravating: Reports: None Alleviating: Reports: None Associated Signs and Symptoms: Reports: Cough, Chest pain, Edema. Denies: Wheezing, Chest pain with cough, Fever, Chills, Diaphoresis, Nasal congestion, Dizziness, Calf pain, Calf swelling, Rapid breathing, Labored breathing, Decreased intake Related History: Reports: Similar episode History of Healthcare-Acquired Pneumonia: No Cardiac Risk Factors: Reports: Prior [place], CAD, Hypertension Home Oxygen Use: No Recent Stress Test: No Recent Echo/LV Function: No Respiratory Distress: None Stridor Present: No Tracheal Deviation: No Subcutaneous Emphysema: No Accessory Muscle Use: No Retractions: Not Present Diminished Breath Sounds: No Prolonged Expiratory Phase: No Unable to Speak Full Sentences: No Fatigue: Yes Leg Swelling: Yes Justine's Sign Present: No Grunting Respirations: No Kussmaul Respirations: No Differential Diagnoses: Pulmonary Edema Quality Indicators for Cardiac Chest Pain: EKG in 10min. Quality Indicator For Non-Traumatic Chest Pain/Syncope: EKG Performed Review of Systems - Review Of Systems Constitutional: Reports: No symptoms Eyes: Reports: No symptoms Ears, Nose, Mouth, Throat: Reports: No symptoms Respiratory: Reports: Cough, Short of air Cardiac: Reports: Chest pain GI: Reports: No symptoms : Reports: No symptoms Musculoskeletal: Reports: No symptoms Skin: Reports: No symptoms Neurological: Reports: No symptoms Endocrine: Reports: No symptoms Hematologic/Lymphatic: Reports: No symptoms All Other Systems: Reviewed and Negative Past Medical History - Past Medical History Previously Healthy: No Endocrine: Reports: None Cardiovascular: Reports: CAD (s/p stent dr luna 04-24), [place], Hypertension ( Uncontrolled ), CHF Respiratory: Reports: COPD, Asthma, Pneumonia Hematological: Reports: Anemia Gastrointestinal: Reports: PUD, GERD Genitourinary: Reports: Kidney stones, CKD Neuro/Psych: Reports: TIA, 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 Denies: Hysterectomy (D&C) - Family History Family History: Reports: Unknown - Social History Smoking Status: Current every day smoker, Light tobacco smoker Hx Substance Use: Yes (HX: alcohol) Alcohol Screening: None Lives: With family - Immunizations Tetanus Shot up to Date: Yes Physical Exam - Physical Exam Appearance: Well-appearing, No pain distress, Well-nourished Pain Distress: Mild Eyes: JENY, EOMI, Conjunctiva clear ENT: Ears normal, Nose normal, Oropharynx normal Neck: Supple Respiratory: Crackles Cardiovascular: RRR, Pulses normal, No rub, No murmur GI/: Soft, Nontender, No masses, Bowel sounds normal, No Organomegaly Musculoskeletal: Normal strength, ROM intact, No edema, No calf tenderness Skin: Warm, Dry, Normal color Neurological: Sensation intact, Motor intact, Reflexes intact, Cranial nerves intact, Alert, Oriented Psychiatric: Affect appropriate Interpretation - Radiology Interpretation Radiology Interpretation By: ED Physician Radiology Results: Positive Exam Interpreted: CT Scan - EKG Interpretation Time of EKG #1: 21:08 Rate: Normal Rhythm: Sinus Ectopy: None [place]: [place] ST Segment: Normal Critical Care Note - Critical Care Note Total Time (mins): 0 Course - Course Hematology/Chemistry: 07/01/16 20:25 07/01/16 20:25 Orders, Labs, Meds: Lab Review 07/01/16 20:25 WBC 6.58 RBC 3.10 L Hgb 9.8 L Hct 29.3 L MCV 94.5 MCH 31.6 H MCHC 33.4 RDW Coeff of Gus 17.8 H Plt Count 191 Immature Gran % (Auto) 0.2 Neut % (Auto) 75.3 Lymph % (Auto) 12.0 [place] % (Auto) 9.4 Eos % (Auto) 2.6 Baso % (Auto) 0.5 Immature Gran # (Auto) 0.0 Neut # 5.0 Lymph # 0.8 [place] # 0.6 Eos # 0.2 Baso # 0.0 Sodium 135 L Potassium 4.8 Chloride 92 L Carbon Dioxide 23 Anion Gap 24.8 BUN 48 H Creatinine 8.99 H* Estimated GFR (MDRD) 5.00 BUN/Creatinine Ratio 5.33 Glucose 91 Calcium 9.0 Total Bilirubin 0.66 AST 26 ALT 25 Alkaline Phosphatase 86 Total Creatine Kinase 140 CK-MB (CK-2) 3.0 CK-MB (CK-2) % 2.15159 Troponin I 0.0370 B-Natriuretic Peptide 2155 H Total Protein 6.8 Albumin 3.9 Globulin 2.9 Albumin/Globulin Ratio 1.34 Orders Category Date Time Status EKG-(ED ONLY) Stat CARDIO 07/01/16 19:59 Ordered IV [ED IV/MEDIPORT/POWERPORT] .ONCE EMERGENCY 07/01/16 20:00 Active OXYGEN [ED APPLY O2] .ONCE EMERGENCY 07/01/16 20:01 Active BNP [B-TYPE NATRIURETIC PEPTIDE] Stat LAB 07/01/16 20:25 Completed CBC W/ AUTO DIFF Stat LAB 07/01/16 20:25 Completed COMPREHENSIVE METABOLIC PANEL Stat LAB 07/01/16 20:25 Completed CREATINE KINASE Stat LAB 07/01/16 20:25 Completed TROPONIN I Stat LAB 07/01/16 20:25 Completed 0.9 % Sodium Chloride [Saline Flush] MEDS 07/01/16 20:00 Ordered 1 syr IVF PRN PRN CXR [CHEST, 1V AP ONLY] Stat RADS 07/01/16 20:00 Taken Medications Generic Name Dose Route Start Last Admin Trade Name Freq PRN Reason Stop Dose Admin Sodium Chloride 1 syr 07/01/16 20:00 Saline Flush IVF PRN PRN To flush IV Vital Signs: Temp Pulse Resp BP Pulse Ox 07/01/16 19:52 96.8 F L 110 H 24 176/126 H 91 L Departure - Departure Time of Disposition: 21:08 Disposition: ADMITTED INPATIENT Discharge Problem: Chest pain, Chronic renal failure, stage 5 Instructions: Chronic Kidney Disease (ED), End Stage Kidney Disease (ED) Condition: Stable Pt referred to PMD for follow-up: Yes Allergies/Adverse Reactions: Allergies aspirin Adverse Reaction (Verified 07/01/16 20:02) Penicillins Adverse Reaction (Verified 07/01/16 20:02) Home Medications: Ambulatory Orders Carvedilol [Coreg] 25 mg PO BID 01/29/15 Hydralazine HCl 25 mg PO DAILY 03/27/15 Clonidine HCl 0.2 mg PO TID 09/14/15 Amlodipine Besylate 10 mg PO DAILY 10/16/15 Cholecalciferol (Vitamin D3) [Vitamin D3] 2,000 unit PO DAILY 12/03/15 Albuterol Sulfate [Proair Hfa] 2 puff IH Q6H PRN #1 inhaler 03/04/16 Clopidogrel Bisulfate [Plavix] 75 mg PO DAILY 04/15/16 Atorvastatin Calcium 40 mg PO BEDTIME 04/28/16 Calcium Carbonate/Vitamin D3 [Calcium 500 + Vit D3 400 Tab] 1 each PO DAILY Nitroglycerin [Nitrostat] 0.4 mg SL Q5MIN X 3 DOSES PRN 04/28/16 Sevelamer HCl [Renagel] 1,600 mg PO QID 04/28/16 Ranitidine HCl [Zantac] 150 mg PO BIDAC #20 tablet 05/05/16 Sucralfate Susp [Carafate] 1 gm PO ACHS #1 bottle 05/05/16 Ondansetron HCl [Zofran Tab] 4 mg PO Q8H PRN #14 tablet 05/29/16 Hydrocodone/Acetaminophen [[place] 5-325 Tablet] 1 each PO Q6HR PRN #3 tablet 10/22 Cyclobenzaprine HCl [Flexeril] 5 mg PO BID #14 tablet 07/01/16 Transfer Form Completed: Yes Disposition Discussed With: Patient
[2016-07-01 20:28] LABS: BASOPHILS % (AUTO) 0.5 % (0.0-3.0); EOSINOPHILS # (AUTO) 0.2 K/ul (0.0-0.7); EOSINOPHILS % (AUTO) 2.6 % (0.0-7.0); HEMATOCRIT 29.3 % (37.0-47.0); HEMOGLOBIN 9.8 g/dl (12.0-16.0); IMMATURE GRANULOCYTE % (AUTO) 0.2 % (0.0-5.0); LYMPHOCYTES # (AUTO) 0.8 K/uL (0.60-3.4); MEAN CORPUSCULAR HEMOGLOBIN 31.6 pg (27.0-31.0); MEAN CORPUSCULAR HGB CONC 33.4 (31.8-35.4); MEAN CORPUSCULAR VOLUME 94.5 fl (81.0-99.0); MONOCYTES # (AUTO) 0.6 K/uL (0.4-2.0); MONOCYTES % (AUTO) 9.4 (0-10); NEUTROPHILS % (AUTO) 75.3; PLATELET COUNT 191 10^3/uL (140-440); WHITE BLOOD COUNT 6.58 K/ul (4.6-10.2)
[2016-07-01 21:03] LABS: ALBUMIN 3.9 g/dL (3.4-5.0); ALBUMIN/GLOBULIN RATIO 1.34; ANION GAP 24.8; BILIRUBIN,TOTAL 0.66 mg/dL (0.00-1.20); BUN/CREATININE RATIO 5.33; POTASSIUM 4.8 mmol/L (3.5-5.10); TOTAL PROTEIN 6.8 g/dL (6.4-8.2); TROPONIN I 0.037 ng/ml (0.0000-0.4000)
[2016-07-01 21:05] LABS: CREATININE 8.99 mg/dL (0.60-1.30)
[2016-07-01] MEDS ORDERED: MORPHINE 2 MG/ML SYRINGE IVP STA (21:19)
[2016-07-01] MEDS ORDERED: PROCARDIA XL PO STA (21:28)
[2016-07-01] MEDS ORDERED: CATAPRES PO STA (21:28)
[2016-07-01] MEDS ORDERED: APRESOLINE PO STA (21:28)
--- NOTE | 2016-07-02 07:15 | DI ---
EXAM: Chest one view, frontal view only. HISTORY: Dyspnea. COMPARISON: 05/26/2016. FINDINGS: Right internal jugular central venous catheter is stable position. Heart size is normal. Vascular congestion seen with increased interstitial markings throughout both lungs. There is pat ney consolidation and both perihilar regions of the left lung base. No large pleural effusion or pn eumothorax identified. Osseous structures are intact. IMPRESSION: Findings suggest pulmonary edema.
== END 2016-07-01 22:05 | disposition short-term general hospital (02) ==
LOC: ED 19:51
DX: R07.9 Chest pain, unspecified (principal); N18.5 Chronic kidney disease, stage 5; I10 Essential (primary) hypertension; I25.10 Atherosclerotic heart disease of native coronary artery without angina pectoris; J44.9 Chronic obstructive pulmonary disease, unspecified; I50.9 Heart failure, unspecified; D64.9 Anemia, unspecified; I25.2 Old myocardial infarction; Z95.5 Presence of coronary angioplasty implant and graft; F17.210 Nicotine dependence, cigarettes, uncomplicated; Z79.899 Other long term (current) drug therapy
CPT/HCPCS: 36415; 80053; 82550; 82553; 83880; 84484; 85025; 93005; 93010; 96375; 99285

== ENCOUNTER 2016-07-01 22:04 | Outpatient (CLI) ==
[2016-07-01 19:57] VITALS: BMI 24.7
== END 2016-07-01 22:05 | disposition home or self-care (01) ==
LOC: AMBL 22:04
PROVIDERS: ATTEND Family Medicine
DX: R07.9 Chest pain, unspecified (principal); R09.89 Other specified symptoms and signs involving the circulatory and respiratory systems; I10 Essential (primary) hypertension; R00.0 Tachycardia, unspecified

== ENCOUNTER 2016-07-08 17:09 | Emergency (ER) ==
[2016-07-08 17:14] VITALS: BP 156/95; TEMP 99; BMI 23.2
[2016-07-08] MEDS ORDERED: NORCO 5-325 PO STA (17:56)
--- NOTE | 2016-07-08 17:59 | ED.PDOC ---
General ED Provider: Dr. KADE ARSHAD Chief Complaint: Back Pain Stated Complaint: Woke up with a lower back pain and right knee pain, she did not injured or fall, she got worried and came for the evaluation. Time Seen by Physician: 17:57 Mode of Arrival: Walk-In Information Source: Patient Primary Care Provider: MARSHALL PEREZ Nursing and Triage Documentation Reviewed and Agree: Yes Musculoskeletal Complaint Exam - Back Pain Complaint/Exam Mechanism of Injury: Reports: No known trauma Symptoms Are: Still present Timing: Constant Episodes Lasting: Hours Initial Severity: Moderate Current Severity: Moderate Location: Reports: Discrete Character: Reports: Aching Aggravating: Reports: Movements, Lifting, Bending Alleviating: Reports: None Associated Signs and Symptoms: Denies: Swelling, Redness, Bruising, Fever, Weakness, Numbness, Tingling, Abdominal pain, Flank pain, Bladder incontinence, Bowel incontinence, Weight loss, Pain with weight bearing Related History: Reports: Similar episode TAD Risk Factors: Reports: None AAA Risk Factors: Reports: None Cauda Equina Risk Factors: Reports: None Epidural Abcess Risk Factors: Reports: None Related Surgical History: Reports: None Focal Tenderness: Yes Paraspinal Muscle Tenderness: Yes Paraspinal Muscle Spasm: Yes Scoliosis: No Lordosis: No Kyphosis: No SLR Test: Right Negative, Left Negative Hip Motion Testing Pain: Right Negative, Left Negative Focal Weakness: Present: None Focal Sensory Loss: Present: None Gait: Present: Normal Differential Diagnoses: Strain, Sprain Review of Systems - Review Of Systems Constitutional: Reports: No symptoms Eyes: Reports: No symptoms Ears, Nose, Mouth, Throat: Reports: No symptoms Respiratory: Reports: No symptoms Cardiac: Reports: No symptoms GI: Reports: No symptoms : Reports: No symptoms Musculoskeletal: Reports: Back pain Skin: Reports: No symptoms Neurological: Reports: No symptoms Endocrine: Reports: No symptoms Hematologic/Lymphatic: Reports: No symptoms All Other Systems: Reviewed and Negative Past Medical History - Past Medical History Previously Healthy: No Endocrine: Reports: None Cardiovascular: Reports: CAD (s/p stent dr luna 04-24), [place], Hypertension ( Uncontrolled ), CHF Respiratory: Reports: COPD, Asthma, Pneumonia Hematological: Reports: Anemia Gastrointestinal: Reports: PUD, GERD Genitourinary: Reports: Kidney stones, CKD Neuro/Psych: Reports: TIA, 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 Denies: Hysterectomy (D&C) - Family History Family History: Reports: Unknown - Social History Smoking Status: Current every day smoker, Light tobacco smoker Smoking Cessation Counseling Time: > 3 min - 10 min Hx Substance Use: No (HX: alcohol) Alcohol Screening: None - Immunizations Tetanus Shot up to Date: Yes Physical Exam - Physical Exam Appearance: Well-appearing, No pain distress, Well-nourished Eyes: JENY, EOMI, Conjunctiva clear ENT: Ears normal, Nose normal, Oropharynx normal Respiratory: Airway patent, Breath sounds clear, Breath sounds equal, Respirations nonlabored Cardiovascular: RRR, Pulses normal, No rub, No murmur GI/: Soft, Nontender, No masses, Bowel sounds normal, No Organomegaly Musculoskeletal: Normal strength, ROM intact, No edema, No calf tenderness Skin: Warm, Dry, Normal color Neurological: Sensation intact, Motor intact, Reflexes intact, Cranial nerves intact, Alert, Oriented Psychiatric: Affect appropriate, Mood appropriate Interpretation - Radiology Interpretation Radiology Interpretation By: ED Physician Radiology Results: Negative Critical Care Note - Critical Care Note Total Time (mins): 0 Course - Course Orders, Labs, Meds: Orders Category Date Time Status Hydrocodone Bit/Acetaminophen [[place] 5-325] MEDS 07/08/16 17:56 Discontinued 1 tab PO ONCE STA LUMBAR SPINE, 2 OR 3 VIEWS Stat RADS 07/08/16 17:56 Taken Medications Discontinued Medications Generic Name Dose Route Start Last Admin Trade Name Freq PRN Reason Stop Dose Admin Acetaminophen/Hydrocodone Bitart 1 tab 07/08/16 17:56 07/08/16 18:00 [place] 5-325 PO 07/08/16 17:57 1 tab ONCE STA Administration Vital Signs: Temp Pulse Resp BP Pulse Ox 07/08/16 17:10 99.0 F 106 H 18 156/95 H 96 Departure - Departure Time of Disposition: 18:00 Disposition: HOME SELF-CARE Discharge Problem: Backache Instructions: Lower Back Exercises (ED) Condition: Stable Pt referred to PMD for follow-up: No Additional Instructions: rest hot pack apple = vit d po bid otc Allergies/Adverse Reactions: Allergies aspirin Adverse Reaction (Verified 07/08/16 17:16) Penicillins Adverse Reaction (Verified 07/08/16 17:16) Home Medications: Ambulatory Orders Carvedilol [Coreg] 25 mg PO BID 01/29/15 Hydralazine HCl 25 mg PO DAILY 03/27/15 Clonidine HCl 0.2 mg PO TID 09/14/15 Amlodipine Besylate 10 mg PO DAILY 10/16/15 Cholecalciferol (Vitamin D3) [Vitamin D3] 2,000 unit PO DAILY 12/03/15 Albuterol Sulfate [Proair Hfa] 2 puff IH Q6H PRN #1 inhaler 03/04/16 Clopidogrel Bisulfate [Plavix] 75 mg PO DAILY 04/15/16 Atorvastatin Calcium 40 mg PO BEDTIME 04/28/16 Calcium Carbonate/Vitamin D3 [Calcium 500 + Vit D3 400 Tab] 1 each PO DAILY Nitroglycerin [Nitrostat] 0.4 mg SL Q5MIN X 3 DOSES PRN 04/28/16 Sevelamer HCl [Renagel] 1,600 mg PO QID 04/28/16 Ranitidine HCl [Zantac] 150 mg PO BIDAC #20 tablet 05/05/16 Sucralfate Susp [Carafate] 1 gm PO ACHS #1 bottle 05/05/16 Ondansetron HCl [Zofran Tab] 4 mg PO Q8H PRN #14 tablet 05/29/16 Hydrocodone/Acetaminophen [[place] 5-325 Tablet] 1 each PO Q6HR PRN #3 tablet 10/22 Cyclobenzaprine HCl [Flexeril] 5 mg PO BID #14 tablet 07/01/16 Disposition Discussed With: Patient
--- NOTE | 2016-07-08 22:45 | DI ---
EXAM: Lumbar spine three view HISTORY: Back pain COMPARISON: 02/08/2016 FINDINGS: The patient is tilted to the left. Sacroiliac joints intact. Portions of the sacrum obs cured secondary to overlying bowel gas. Chronic compression deformities T5, L2 and L4, and L5 unchan ged. Vertebral bodies otherwise normal in height. No acute fracture. Probable ankylosis L5-S1. IMPERSSION: 1. No acute compression fracture identified. 2. Chronic compression fractures
== END 2016-07-08 18:44 | disposition home or self-care (01) ==
LOC: ED 17:09
DX: M54.5 Low back pain (principal); M25.561 Pain in right knee; F17.210 Nicotine dependence, cigarettes, uncomplicated
CPT/HCPCS: 99282

== ENCOUNTER 2016-07-13 08:49 | Outpatient (CLI) ==
[2016-07-13 09:15] LABS: HEMATOCRIT 24.1 % (37.0-47.0)
== END 2016-07-13 08:50 | disposition home or self-care (01) ==
LOC: NONPT 08:49
PROVIDERS: ATTEND Internal Medicine Nephrology
DX: D64.9 Anemia, unspecified (principal)
CPT/HCPCS: 85014; 85018

== ENCOUNTER 2016-07-14 18:02 | Emergency (ER) ==
[2016-07-14 18:03] VITALS: BMI 23.2
[2016-07-14 18:07] VITALS: BP 166/111; TEMP 98.8
--- NOTE | 2016-07-14 18:14 | ED.PDOC ---
General ED Provider: Dr. INDIGO NICHOLSON-ER Chief Complaint: Non-specific Complaint Stated Complaint: toñito got a runny nose, sore throat and a cough Time Seen by Physician: 18:05 Mode of Arrival: Walk-In Information Source: Patient Exam Limitations: No limitations Primary Care Provider: MARSHALL PEREZ Nursing and Triage Documentation Reviewed and Agree: Yes EENT Complaint Exam - Nasal Complaint/Exam Onset/Duration: 24hrs Symptoms Are: Still present Timing: Constant Initial Severity: Mild Current Severity: Mild Aggravating: Reports: URI Alleviating: Reports: None Associated Signs and Symptoms: Reports: Nasal congestion, Sinus pain, Nasal discharge. Denies: Bruising, Hematuria, Hematochezia, Foreign body, Abnormal coags Nasal Surgical History: Reports: None Foreign Body Present: No Differential Diagnoses: Sinusitis Review of Systems - Review Of Systems Constitutional: Reports: No symptoms Eyes: Reports: No symptoms Ears, Nose, Mouth, Throat: Reports: Nose discharge, Throat pain Respiratory: Reports: Cough Cardiac: Reports: No symptoms GI: Reports: No symptoms : Reports: No symptoms Musculoskeletal: Reports: No symptoms Skin: Reports: No symptoms Neurological: Reports: No symptoms Endocrine: Reports: No symptoms Hematologic/Lymphatic: Reports: No symptoms All Other Systems: Reviewed and Negative Past Medical History - Past Medical History Previously Healthy: No Endocrine: Reports: None Cardiovascular: Reports: CAD (s/p stent dr luna 04-24), [place], Hypertension ( Uncontrolled ), CHF Respiratory: Reports: COPD, Asthma, Pneumonia Hematological: Reports: Anemia Gastrointestinal: Reports: PUD, GERD Genitourinary: Reports: Kidney stones, CKD Neuro/Psych: Reports: TIA, 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 Denies: Hysterectomy (D&C) - Family History Family History: Reports: Unknown - Social History Smoking Status: Current every day smoker, Light tobacco smoker Hx Substance Use: No (HX: alcohol) Alcohol Screening: None Lives: With family - Immunizations Tetanus Shot up to Date: Yes Physical Exam - Physical Exam Appearance: Well-appearing, No pain distress, Well-nourished Eyes: JENY, EOMI, Conjunctiva clear ENT: Rhinorrhea Neck: Supple Respiratory: Airway patent, Breath sounds clear, Breath sounds equal, Respirations nonlabored, Rhonchi Cardiovascular: RRR, Pulses normal, No rub, No murmur GI/: Soft, Nontender, No masses, Bowel sounds normal, No Organomegaly Musculoskeletal: Normal strength, ROM intact, No edema, No calf tenderness Skin: Warm, Dry, Normal color Neurological: Sensation intact, Motor intact, Reflexes intact, Cranial nerves intact, Alert, Oriented Psychiatric: Affect appropriate, Mood appropriate Critical Care Note - Critical Care Note Total Time (mins): 0 Course - Course Orders, Labs, Meds: Orders Category Date Time Status FLU A & B RAPID TEST [RAPID FLU A/B] Stat LAB 07/14/16 18:11 Ordered Vital Signs: Temp Pulse Resp BP Pulse Ox 07/14/16 18:03 98.8 F 97 H 20 166/111 H 98 Departure - Departure Time of Disposition: 18:13 Disposition: HOME SELF-CARE Discharge Problem: Sinusitis Qualifiers: Sinusitis location: unspecified location Chronicity: acute Recurrence: not specified as recurrent Qualifier Code: (J01.90) Acute sinusitis, unspecified Instructions: Sinusitis (ED) Condition: Stable Pt referred to PMD for follow-up: Yes Additional Instructions: zpack--tylenol for body aches--f/u with pcp Allergies/Adverse Reactions: Allergies aspirin Adverse Reaction (Verified 07/08/16 17:16) Penicillins Adverse Reaction (Verified 07/08/16 17:16) Home Medications: Ambulatory Orders Carvedilol [Coreg] 25 mg PO BID 01/29/15 Hydralazine HCl 25 mg PO DAILY 03/27/15 Clonidine HCl 0.2 mg PO TID 09/14/15 Amlodipine Besylate 10 mg PO DAILY 10/16/15 Cholecalciferol (Vitamin D3) [Vitamin D3] 2,000 unit PO DAILY 12/03/15 Albuterol Sulfate [Proair Hfa] 2 puff IH Q6H PRN #1 inhaler 03/04/16 Clopidogrel Bisulfate [Plavix] 75 mg PO DAILY 04/15/16 Atorvastatin Calcium 40 mg PO BEDTIME 04/28/16 Calcium Carbonate/Vitamin D3 [Calcium 500 + Vit D3 400 Tab] 1 each PO DAILY Nitroglycerin [Nitrostat] 0.4 mg SL Q5MIN X 3 DOSES PRN 04/28/16 Sevelamer HCl [Renagel] 1,600 mg PO QID 04/28/16 Ranitidine HCl [Zantac] 150 mg PO BIDAC #20 tablet 05/05/16 Sucralfate Susp [Carafate] 1 gm PO ACHS #1 bottle 05/05/16 Ondansetron HCl [Zofran Tab] 4 mg PO Q8H PRN #14 tablet 05/29/16 Hydrocodone/Acetaminophen [[place] 5-325 Tablet] 1 each PO Q6HR PRN #3 tablet 10/22 Cyclobenzaprine HCl [Flexeril] 5 mg PO BID #14 tablet 07/01/16 Disposition Discussed With: Patient
[2016-07-14 18:45] LABS: FLU INTERNAL QC INTERNAL QC VALID; RAPID FLU A NEGATIVE (NEGATIVE); RAPID FLU B NEGATIVE (NEGATIVE)
== END 2016-07-14 18:48 | disposition home or self-care (01) ==
LOC: ED 18:02
DX: J01.90 Acute sinusitis, unspecified (principal); I10 Essential (primary) hypertension; F17.210 Nicotine dependence, cigarettes, uncomplicated
CPT/HCPCS: 87804; 99283

== ENCOUNTER 2016-07-14 19:21 | Outpatient (CLI) ==
[2016-07-14 18:03] VITALS: BMI 23.2
== END 2016-07-14 19:22 ==
LOC: AMBL 19:21
PROVIDERS: ATTEND Emergency Medicine
DX: R06.02 Shortness of breath (principal); R06.2 Wheezing; R05 Cough; R60.0 Localized edema; R00.0 Tachycardia, unspecified; N19 Unspecified kidney failure; Z99.2 Dependence on renal dialysis

== ENCOUNTER 2016-07-22 22:18 | Emergency (ER) ==
[2016-07-22 22:26] VITALS: TEMP 97.2; BMI 27.0
[2016-07-22] MEDS ORDERED: CATAPRES PO STA (22:28)
[2016-07-22] MEDS ORDERED: APRESOLINE PO STA (22:28)
[2016-07-22] MEDS ORDERED: PROCARDIA XL PO STA (22:28)
[2016-07-22] MEDS ORDERED: NORCO 5-325 PO STA (22:29)
--- NOTE | 2016-07-22 23:35 | ED.PDOC ---
General ED Provider: Dr. INDIGO NICHOLSON-ER Chief Complaint: Headache Stated Complaint: my bp is up Time Seen by Physician: 22:25 Mode of Arrival: Walk-In Information Source: Patient Exam Limitations: No limitations Primary Care Provider: MARSHALL PEREZ Nursing and Triage Documentation Reviewed and Agree: Yes Cardiovascular Complaint Exam - Hypertension Complaint/Exam Onset/Duration: today Symptoms Are: Still present Timing: Constant Reported B/P Prior to Arrival: se nursing note Aggravating: Reports: None Alleviating: Reports: Rest Associated Signs and Symptoms: Reports: Headache. Denies: Chest pain, Vision changes, Anxiety, Recent stress, Numbness, Tingling, Weakness, Dizziness, Short of air, Swelling Related History: Reports: Similar episode Related Surgical History: Reports: Cardiac Cath, PTCA/Stent Cardiac Risk Factors: Reports: Hypertension, Smoking, CHF, Prior MD, CAD Recent Change in Medications: No A/V Nicking: No Papilledema Present: No JVD Present: No Carotid Bruit Present: No Femoral Pulses Bounding: Yes Differential Diagnoses: Hypertension, Hypertensive Urgency Review of Systems - Review Of Systems Constitutional: Reports: No symptoms Eyes: Reports: No symptoms Ears, Nose, Mouth, Throat: Reports: No symptoms Respiratory: Reports: No symptoms Cardiac: Reports: No symptoms GI: Reports: No symptoms : Reports: No symptoms Musculoskeletal: Reports: No symptoms Skin: Reports: No symptoms Neurological: Reports: Headache Endocrine: Reports: No symptoms Hematologic/Lymphatic: Reports: No symptoms All Other Systems: Reviewed and Negative Past Medical History - Past Medical History Previously Healthy: No Endocrine: Reports: None Cardiovascular: Reports: CAD (s/p stent dr luna 04-24), MD, Hypertension ( Uncontrolled ), CHF Respiratory: Reports: COPD, Asthma, Pneumonia Hematological: Reports: Anemia Gastrointestinal: Reports: PUD, GERD Genitourinary: Reports: Kidney stones, CKD Neuro/Psych: Reports: TIA, 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 Denies: Hysterectomy (D&C) - Family History Family History: Reports: Unknown - Social History Smoking Status: Current every day smoker Hx Substance Use: No (HX: alcohol) Alcohol Screening: None Lives: With family - Immunizations Tetanus Shot up to Date: Yes Physical Exam - Physical Exam Appearance: Well-appearing Pain Distress: Mild Eyes: JENY, EOMI, Conjunctiva clear ENT: Ears normal, Nose normal, Oropharynx normal Neck: Supple Respiratory: Airway patent, Breath sounds clear, Breath sounds equal, Respirations nonlabored Cardiovascular: RRR, Pulses normal, No rub, No murmur GI/: Soft, Nontender, No masses, Bowel sounds normal, No Organomegaly Musculoskeletal: Normal strength Skin: Warm, Dry, Normal color Neurological: Sensation intact, Motor intact, Reflexes intact, Cranial nerves intact, Alert, Oriented Psychiatric: Affect appropriate Re-Evaluation - Re-Evaluation Time of Re-Evaluation: 23:35 Status: Improved Vital Signs Stable: Yes (bp 160/90--urbano resolved) Pain Level: 1 Appearance: NAD Lungs: Clear Skin: Warm and Dry Neuro: Alert and Oriented X3 CV: RRR Critical Care Note - Critical Care Note Total Time (mins): 0 Course - Course Orders, Labs, Meds: Orders Category Date Time Status Clonidine HCl [Catapres] MEDS 07/22/16 22:28 Discontinued 0.3 mg PO ONCE STA Hydralazine HCl [Apresoline] MEDS 07/22/16 22:28 Discontinued 100 mg PO ONCE STA Hydrocodone Bit/Acetaminophen [Anselmo 5-325] MEDS 07/22/16 22:29 Discontinued 1 tab PO ONCE STA Nifedipine [Procardia Xl] MEDS 07/22/16 22:28 Discontinued 90 mg PO ONCE STA Medications Discontinued Medications Generic Name Dose Route Start Last Admin Trade Name Freq PRN Reason Stop Dose Admin Acetaminophen/Hydrocodone Bitart 1 tab 07/22/16 22:29 07/22/16 22:38 Anselmo 5-325 PO 07/22/16 22:30 1 tab ONCE STA Administration Clonidine 0.3 mg 07/22/16 22:28 07/22/16 22:37 Catapres PO 07/22/16 22:29 0.3 mg ONCE STA Administration Hydralazine HCl 100 mg 07/22/16 22:28 07/22/16 22:37 Apresoline PO 07/22/16 22:29 100 mg ONCE STA Administration Nifedipine 90 mg 07/22/16 22:28 07/22/16 22:38 Procardia Xl PO 07/22/16 22:29 90 mg ONCE STA Administration Vital Signs: Temp Pulse Resp BP Pulse Ox 07/22/16 23:26 169/120 H 07/22/16 22:19 97.2 F L 99 H 20 206/135 H 96 ALEX Risk Score ALEX Risk Score: Risk Score Odds of by 30D 0 0.1 (0.1-0.2) 1 0.3 (0.2-0.3) 2 0.4 (0.3-0.5) 3 0.7 (0.6-0.9) 4 1.2 (1.0-1.5) 5 2.2 (1.9-2.6) 6 3.0 (2.5-3.6) 7 4.8 (3.8-6.1) Departure - Departure Time of Disposition: 23:35 Disposition: HOME SELF-CARE Discharge Problem: Headache Instructions: Chronic Hypertension (ED) Condition: Good Pt referred to PMD for follow-up: Yes Additional Instructions: f/u dialysis tomorrow Allergies/Adverse Reactions: Allergies aspirin Adverse Reaction (Verified 07/22/16 22:26) Penicillins Adverse Reaction (Verified 07/22/16 22:26) Home Medications: Ambulatory Orders Carvedilol [Coreg] 25 mg PO BID 01/29/15 Hydralazine HCl 25 mg PO DAILY 03/27/15 Clonidine HCl 0.2 mg PO TID 09/14/15 Amlodipine Besylate 10 mg PO DAILY 10/16/15 Cholecalciferol (Vitamin D3) [Vitamin D3] 2,000 unit PO DAILY 12/03/15 Albuterol Sulfate [Proair Hfa] 2 puff IH Q6H PRN #1 inhaler 03/04/16 Clopidogrel Bisulfate [Plavix] 75 mg PO DAILY 04/15/16 Atorvastatin Calcium 40 mg PO BEDTIME 04/28/16 Calcium Carbonate/Vitamin D3 [Calcium 500 + Vit D3 400 Tab] 1 each PO DAILY Nitroglycerin [Nitrostat] 0.4 mg SL Q5MIN X 3 DOSES PRN 04/28/16 Sevelamer HCl [Renagel] 1,600 mg PO QID 04/28/16 Ranitidine HCl [Zantac] 150 mg PO BIDAC #20 tablet 05/05/16 Sucralfate Susp [Carafate] 1 gm PO ACHS #1 bottle 05/05/16 Ondansetron HCl [Zofran Tab] 4 mg PO Q8H PRN #14 tablet 05/29/16 Hydrocodone/Acetaminophen [Anselmo 5-325 Tablet] 1 each PO Q6HR PRN #3 tablet 10/22 Cyclobenzaprine HCl [Flexeril] 5 mg PO BID #14 tablet 07/01/16 Disposition Discussed With: Patient
[2016-07-22 23:55] VITALS: BP 160/90
== END 2016-07-22 23:39 | disposition home or self-care (01) ==
LOC: ED 22:18
DX: R51 Headache (principal); I10 Essential (primary) hypertension; I50.9 Heart failure, unspecified; I25.2 Old myocardial infarction; I25.10 Atherosclerotic heart disease of native coronary artery without angina pectoris; F17.210 Nicotine dependence, cigarettes, uncomplicated; Z95.5 Presence of coronary angioplasty implant and graft; Z79.899 Other long term (current) drug therapy; Z86.73 Personal history of transient ischemic attack (TIA), and cerebral infarction without residual deficits
CPT/HCPCS: 99283

== ENCOUNTER 2016-07-24 21:50 | Emergency (ER) ==
[2016-07-24 21:56] VITALS: TEMP 99; BMI 23.1
[2016-07-24] MEDS ORDERED: CATAPRES PO STA (23:52)
[2016-07-24] MEDS ORDERED: NORVASC PO STA (23:52)
[2016-07-24] MEDS ORDERED: TYLENOL PO STA (23:53)
--- NOTE | 2016-07-24 23:53 | ED.PDOC ---
General ED Provider: Dr. CRISTINO AYERS Chief Complaint: Back Pain Stated Complaint: Patient complaints of right ebow pain but denies any Trauma. Also out of her blood pressure medications Norvac and Plavix. Took Tylenol this morning for the pain. ... After nell in the ER for about 2 hours with trials of medications to bring her blood pressure down. She started having right sided headache with left sided weakness. Time Seen by Physician: 23:30 Mode of Arrival: Walk-In Information Source: Patient Exam Limitations: No limitations Primary Care Provider: MARSHALL PEREZ Nursing and Triage Documentation Reviewed and Agree: Yes Miscellaneous Complaint Exam - Complex/Multi-System Complaint/Exam Onset/Duration: 1 day Symptoms Are: Still present Initial Severity: Mild Location of Pain: Right elbow Pain Radiates to: non Character: Dull Aggravating: Touching Alleviating: Rest Associated Signs and Symptoms: Denies: Decreased responsiveness, Confusion, Agitation, Dizziness, Weakness, Syncope, Headache, Short of air, Cough, Wheezing , Hemoptysis, Chest pain, Palpitations, Edema, Nausea, Vomiting, Diarrhea, Abdominal pain, Back pain, Dysuria, Hematemesis, Melena, Decreased oral intake, Fever, Diaphoresis, Immunocompromised, Anticoagulation Therapy, Recent medication changes, 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, Prior MRSA, Prior VRE, Recent trauma, Remote trauma Respiratory Distress: None JVD Present: No Tachypnea Present: No Stridor Present: No Abdominal Findings: Present: Normal findings Glascow Coma Scale (see protocol): 15 Meningeal Signs Positive: No Focal Weakness: Present: None Focal Sensory Loss: Present: None Gag Reflex Present: No Babinski Sign: Negative Right, Negative Left Skin Findings: Present: Normal findings Joint Swelling Present: No In-Dwelling Device Present: No Differential Diagnosis: Other (arthritis ) Quality Indicator For Non-Traumatic Chest Pain/Syncope: EKG Performed (after having stroke symtoms ) Review of Systems - Review Of Systems Constitutional: Reports: No symptoms Eyes: Reports: No symptoms Ears, Nose, Mouth, Throat: Reports: No symptoms Respiratory: Reports: Cough (after having stroke symtoms ), Short of air ( severe after stroke symtoms ), Wheezing Cardiac: Reports: No symptoms GI: Reports: No symptoms : Reports: No symptoms Musculoskeletal: Reports: Back pain, Joint pain (right elbow. ) Skin: Reports: No symptoms Neurological: Reports: Anxiety, Headache (started after being in the ER for 2 hours ) Endocrine: Reports: Excessive sweating (after her stoke ), Flushing Hematologic/Lymphatic: Reports: No symptoms All Other Systems: Reviewed and Negative Past Medical History - Past Medical History Previously Healthy: No Endocrine: Reports: None Cardiovascular: Reports: CAD (s/p stent dr luna 04-24), OR, Hypertension ( Uncontrolled ), CHF Respiratory: Reports: COPD, Asthma, Pneumonia Hematological: Reports: Anemia Gastrointestinal: Reports: PUD, GERD Genitourinary: Reports: Kidney stones, CKD Neuro/Psych: Reports: TIA, 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 Denies: Hysterectomy (D&C) - Family History Family History: Reports: Unknown - Social History Smoking Status: Current every day smoker Hx Substance Use: No (HX: alcohol) Alcohol Screening: None - Immunizations Tetanus Shot up to Date: Yes Physical Exam - Physical Exam Appearance: Ill-appearing, Thin Ill-appearing: Moderate Pain Distress: Mild Neck: Supple Respiratory: Airway patent, Breath sounds clear, Breath sounds equal, Respirations nonlabored Cardiovascular: RRR, Pulses normal, No rub, No murmur GI/: Soft, Nontender, No masses, Bowel sounds normal, No Organomegaly Musculoskeletal: Normal strength, ROM intact, No edema, No calf tenderness Skin: Warm, Dry, Normal color Neurological: Sensation intact, Motor intact, Reflexes intact, Cranial nerves intact, Alert, Oriented Psychiatric: Affect appropriate, Mood appropriate Interpretation - Radiology Interpretation Radiology Interpretation By: Radiologist Radiology Results: Positive Exam Interpreted: CT Scan (Hyperdense Parenchymal Hemorrage withing the Right basal ganglion causing mild mass effect with 2 mm midline shift) Radiology Results: Positive (ET tube in palce, Bilateral pulmonary Edema.) Exam Interpreted: Portable CXR (post intubation. ) - Frame Tender Rate: Tachy Rhythm: Sinus - EKG Interpretation Time of EKG #1: 03:08 Rate: Tachy Rhythm: Sinus Ectopy: None Interpretation: Left ventricular hypertrophy Procedures - Intubation Indication: Present: Respiratory Insufficiency, Altered Mental Status, Airway Protection Time of Intubation: 03:15 Medications: Yes: Norcuron, Succinylcholine, Versed Type of Tube Used: Endotracheal Tube Size: 7.5 Cricoid Pressure Used: No Tube Langford Used: Yes Position of Tube at Lip: 20 Number of Attempts: 1 Suction Used: Yes Glidescope Used: No CO2 Detector Used: Yes Lung Sounds Equal Bilaterally: Yes Intubation Complications: Present: No complications Tube Inserted By: Physician ( Dr Ayers) Tube Placement Verified by X-ray: Yes Progress/Xray Impression: stable Re-Evaluation - Re-Evaluation Time of Re-Evaluation: 03:37 Status: Worse (noted with left sided weakness. ) Vital Signs Stable: No (Bp after intubation is now 168/121 ) Physician Notification - Case Discussed Physician Notified: Dr Gutierrez Time of Notification: 03:00 (ok to transfer but should try to acheive lower blood pressure close to 160 systolic) Critical Care Note - Critical Care Note Total Time (mins): 65 Course - Course Hematology/Chemistry: 07/25/16 03:46 07/25/16 03:46 Orders, Labs, Meds: Lab Review 07/25/16 07/25/16 03:12 03:46 WBC 12.18 H RBC 4.18 L Hgb 12.7 Hct 38.7 MCV 92.6 MCH 30.4 MCHC 32.8 RDW Coeff of Gus 16.8 H Plt Count 243 Immature Gran % (Auto) 0.5 Neut % (Auto) 85.5 Lymph % (Auto) 6.3 L Gilpin % (Auto) 5.0 Eos % (Auto) 2.0 Baso % (Auto) 0.7 Immature Gran # (Auto) 0.1 Neut # 10.4 H Lymph # 0.8 Gilpin # 0.6 Eos # 0.2 Baso # 0.1 PT 10.9 INR 1.06 Puncture Site Lb O2 Saturation 100.0 ABG pH 7.373 ABG pCO2 46.3 H ABG pO2 260.0 H ABG HCO3 27.0 H ABG Total CO2 28 ABG Base Excess 2 Mike Test + O2 Delivery Device Vent FiO2 % 100.0 Sodium 136 Potassium 4.5 Chloride 96 L Carbon Dioxide 22 Anion Gap 22.5 BUN 43 H Creatinine 8.26 H* Estimated GFR (MDRD) 5.00 BUN/Creatinine Ratio 5.20 Glucose 182 H Calcium 9.5 Total Bilirubin 0.68 AST 17 ALT 11 L Alkaline Phosphatase 80 Total Creatine Kinase 52 Troponin I 0.0310 Total Protein 7.0 Albumin 3.7 Globulin 3.3 Albumin/Globulin Ratio 1.12 Orders Category Date Time Status ABG DRAW REQUEST Stat CARDIO 07/25/16 03:12 Completed EKG-(ED ONLY) Stat CARDIO 07/25/16 02:55 Completed NEBULIZER TREATMENT Stat CARDIO 07/25/16 02:52 Completed OXYGEN [ED APPLY O2] .ONCE EMERGENCY 07/25/16 02:56 Active ABG Stat LAB 07/25/16 03:12 Completed CBC W/ AUTO DIFF Stat LAB 07/25/16 03:46 Completed COMPREHENSIVE METABOLIC PANEL Stat LAB 07/25/16 03:46 Completed CREATINE KINASE Stat LAB 07/25/16 03:46 Completed PT WITH INR Stat LAB 07/25/16 03:46 Completed TROPONIN I Stat LAB 07/25/16 03:46 Completed Acetaminophen [Tylenol] MEDS 07/24/16 23:53 Discontinued 1,000 mg PO ONCE STA Amlodipine Besylate [Norvasc] MEDS 07/24/16 23:52 Discontinued 10 mg PO ONCE STA Clonidine HCl [Catapres] MEDS 07/24/16 23:52 Discontinued 0.2 mg PO ONCE STA Dextrose 5 %-Water [Dextrose 5%-Water IV Soln] 248 ml MEDS 07/25/16 04:00 Discontinued Nitroprusside Sodium [Nitropress] 50 mg IV 0.5 mcg/kg/min Fentanyl Amp [Sublimaze] MEDS 07/25/16 03:38 Discontinued 100 mcg .ROUTE .STK-MED ONE Fentanyl Amp [Sublimaze] MEDS 07/25/16 03:35 Discontinued 50 mcg IVP ONCE STA Hydralazine HCl [Apresoline] MEDS 07/25/16 01:04 Discontinued 50 mg PO ONCE STA Ipratropium/Albuterol Neb [Duoneb] MEDS 07/25/16 02:52 Discontinued 1 vial NEB ONCE STA Midazolam HCl Inj [Versed] MEDS 07/25/16 03:11 Discontinued 2.5 mg IVP ONCE STA Midazolam HCl Inj [Versed] MEDS 07/25/16 03:35 Discontinued 2.5 mg IVP ONCE STA Midazolam HCl Inj [Versed] MEDS 07/25/16 03:12 Discontinued 5 mg .ROUTE .STK-MED ONE Midazolam HCl Inj [Versed] MEDS 07/25/16 03:38 Discontinued 5 mg .ROUTE .STK-MED ONE Nitroprusside Sodium [Nitropress] MEDS 07/25/16 03:29 Discontinued 18 mg IV ONCE ONE Ondansetron HCl/Pf [Zofran 4 mg/2 ml] MEDS 07/25/16 02:48 Discontinued 4 mg .ROUTE .STK-MED ONE Ondansetron HCl/Pf [Zofran 4 mg/2 ml] MEDS 07/25/16 02:54 Discontinued 4 mg IVP ONCE STA Succinylcholine Chloride [Anectine] MEDS 07/25/16 03:13 Discontinued 20 mg .ROUTE .STK-MED ONE Succinylcholine Chloride [Anectine] MEDS 07/25/16 03:11 Discontinued 50 mg IVP ONCE STA Vecuronium Heppner [Norcuron] MEDS 07/25/16 03:28 Discontinued 5 mg IVP ONCE STA CHEST, 1V AP ONLY Stat RADS 07/25/16 03:[address] HEAD W/O CONTRAST Stat RADS 07/25/16 02:20 Completed Medications Discontinued Medications Generic Name Dose Route Start Last Admin Trade Name Freq PRN Reason Stop Dose Admin Acetaminophen 1,000 mg 07/24/16 23:53 07/25/16 00:01 Tylenol PO 07/24/16 23:54 1,000 mg ONCE STA Administration Albuterol/Ipratropium 1 vial 07/25/16 02:52 07/25/16 03:01 Duoneb NEB 07/25/16 02:53 1 vial ONCE STA Administration Amlodipine Besylate 10 mg 07/24/16 23:52 07/25/16 00:01 Norvasc PO 07/24/16 23:53 10 mg ONCE STA Administration Clonidine 0.2 mg 07/24/16 23:52 07/25/16 00:01 Catapres PO 07/24/16 23:53 0.2 mg ONCE STA Administration Fentanyl Citrate 50 mcg 07/25/16 03:35 07/25/16 03:42 Sublimaze IVP 07/25/16 03:36 50 mcg ONCE STA Administration Hydralazine HCl 50 mg 07/25/16 01:04 07/25/16 01:12 Apresoline PO 07/25/16 01:05 50 mg ONCE STA Administration Sodium Nitroprusside 50 mg/ 250 mls @ 8.34 mls/hr 07/25/16 04:00 07/25/16 05: 31 Dextrose IV Not Given .Q24H JESSY Protocol 0.5 MCG/KG/MIN Midazolam HCl 2.5 mg 07/25/16 03:11 07/25/16 03:22 Versed IVP 07/25/16 03:12 2.5 mg ONCE STA Administration Midazolam HCl 2.5 mg 07/25/16 03:35 07/25/16 03:41 Versed IVP 07/25/16 03:36 2.5 mg ONCE STA Administration Ondansetron HCl 4 mg 07/25/16 02:54 07/25/16 03:08 Zofran 4 Mg/2 Ml IVP 07/25/16 02:55 4 mg ONCE STA Administration Sodium Nitroprusside 18 mg 07/25/16 03:29 Nitropress IV 07/25/16 03:30 ONCE ONE Succinylcholine Chloride 50 mg 07/25/16 03:11 07/25/16 03:26 Anectine IVP 07/25/16 03:12 50 mg ONCE STA Administration Vecuronium Heppner 5 mg 07/25/16 03:28 07/25/16 03:39 Norcuron IVP 07/25/16 03:29 5 mg ONCE STA Administration Vital Signs: Temp Pulse Resp BP Pulse Ox 07/25/16 03:31 20 07/25/16 02:20 85 24 201/144 H 90 L 07/25/16 02:02 83 18 206/139 H 95 07/25/16 01:04 81 18 204/138 H 94 L 07/24/16 23:49 80 16 216/135 H 93 L 07/24/16 21:50 99 F 89 18 217/140 H 96 Departure - Departure Time of Disposition: 05:30 Disposition: TSF SHORT-TRM HOSP Discharge Problem: Elbow pain, right, Intracranial bleeding Hypertension Qualifiers: Hypertension type: essential hypertension Qualifier Code: (I10) Essential ( primary) hypertension Condition: Stable Pt referred to PMD for follow-up: Yes Additional Instructions: Take over the counter Tylenol for pain Refill your prescription for you blood pressure medications. Allergies/Adverse Reactions: Allergies aspirin Adverse Reaction (Verified 07/24/16 21:57) Penicillins Adverse Reaction (Verified 07/24/16 21:57) Home Medications: Ambulatory Orders Carvedilol [Coreg] 25 mg PO BID 01/29/15 Hydralazine HCl 25 mg PO DAILY 03/27/15 Clonidine HCl 0.2 mg PO TID 09/14/15 Amlodipine Besylate 10 mg PO DAILY 10/16/15 Cholecalciferol (Vitamin D3) [Vitamin D3] 2,000 unit PO DAILY 12/03/15 Albuterol Sulfate [Proair Hfa] 2 puff IH Q6H PRN #1 inhaler 03/04/16 Clopidogrel Bisulfate [Plavix] 75 mg PO DAILY 04/15/16 Atorvastatin Calcium 40 mg PO BEDTIME 04/28/16 Calcium Carbonate/Vitamin D3 [Calcium 500 + Vit D3 400 Tab] 1 each PO DAILY Nitroglycerin [Nitrostat] 0.4 mg SL Q5MIN X 3 DOSES PRN 04/28/16 Sevelamer HCl [Renagel] 1,600 mg PO QID 04/28/16 Ranitidine HCl [Zantac] 150 mg PO BIDAC #20 tablet 05/05/16 Sucralfate Susp [Carafate] 1 gm PO ACHS #1 bottle 05/05/16 Ondansetron HCl [Zofran Tab] 4 mg PO Q8H PRN #14 tablet 05/29/16 Cyclobenzaprine HCl [Flexeril] 5 mg PO BID #14 tablet 07/01/16 Disposition Discussed With: Patient - Neurological Deficit Complaint/Exam Patient Complains of: Reports: Muscle weakness Symptom Onset Unknown: No (while in the ER 0215) Symptom Onset Date: 07/25/16 Symptom Onset Time: 02:15 Onset: Sudden Symptoms Are: Still present Timing: Constant Initial Severity: Severe Current Severity: Severe Location: Reports: Facial, LUE, LLE Character: Reports: Motor weakness Aggravating: Reports: Hypertension Alleviating: Reports: None Associated Signs and Symptoms: Reports: Headache (just prior to stroke symtoms ) . Denies: Confusion, Agitation, Nuchal rigidity, Recent trauma CVA Risk Factors: Reports: Hypertension, Smoking, CAD SDH Risk Factors: Reports: Anticoagulant use (plavix use but was out recently ) Glascow Coma Scale (see protocol): 15 Meningeal Signs Positive: No Focal Weakness: Present: LUE, LLE, Left facial Focal Sensory Loss: Present: LUE, LLE, Left facial Gait: Abnormal, Unsteady Gag Reflex Present: Yes [id number]: Abnormal left Heel to Toe Normal: No Signs of Trauma: No NIH Scale Score (see protocol): 6 IV t-PA Prescribed: No Reasons for not prescribing IV t-PA: Medical contraindication (brain bleed) Differential Diagnoses: Anxiety, CVA, Hypertension, Intracranial Bleed Quality Indicator For Non-Traumatic Chest Pain/Syncope: EKG Performed - NIH Stroke Scale 1a. Level of Consciousness: 0=Alert and keenly responsive 1b. Level of Consciousness Questions: 0=Answers correctly to two questions 1c. Level of Consciousness Commands: 0=Performs two tasks correctly 2. Best Gaze: 0=Normal 3. Visual: 0=No visual loss 4. Facial Palsy: 1=Minor paresis (flattened nasolabila fold) 5a. Motor Left Arm: 2=Some effort against gravity, drifts to bed 5b. Motor Right Arm: 0=No drift,arm holds 90 degrees for 10 sec., leg 30 degrees for 5 sec. 6a. Motor Left Le=Some effort against gravity, drifts to bed 6b. Motor Right Le=No drift,arm holds 90 degrees for 10 sec., leg 30 degrees for 5 sec. 7. Limb Ataxia: 0=Absent 8. Sensory: 1=Mild to moderate sensory loss 9. Best Language: 0=No aphasia 10. Dysarthria: 0=Normal 11. Extincion and Inattention: 0=Normal Stroke Scale Total: 6
[2016-07-25] MEDS ORDERED: APRESOLINE PO STA (01:04)
[2016-07-25 02:36] VITALS: BP 201/144
[2016-07-25] MEDS ORDERED: ZOFRAN 4 MG/2 ML ONE (02:48)
[2016-07-25] MEDS ORDERED: DUONEB NEB STA (02:52)
[2016-07-25] MEDS ORDERED: ZOFRAN 4 MG/2 ML IVP STA (02:54)
--- NOTE | 2016-07-25 03:06 | CT ---
EXAM: CT scan brain without contrast HISTORY: Left-sided weakness headache. COMPARISON: CT scan brain 04/01/2016 FINDINGS: Contiguous axial images obtained from the skull base to the convexities without contrast utilizing 5-mm collimation. Sagittal and coronal reconstructions were imaged and reviewed.. There is a 4.6 x 1.8 x 1.9 cm hyperdense parenchymal hemorrhage within the right basal ganglion with mild surrounding echogenic edema. There is mass effect upon the right lateral ventricle with 2 mm midlin e shift from right to left. The ventricles and CSF spaces are prominent compatible with age appropr iate atrophy. There is periventricular hypodensity compatible with chronic microvascular disease.. There is a retention cyst within the left maxillary sinus. The mastoid air cells are clear. IMPRESSION: Hyperdense parenchymal hemorrhage within the right basal ganglion causing mild mass effect with 2 mm midline shift from right to left. Age appropriate atrophy with chronic microvascular disease. ASVD. Benign sinus disease. Results were conveyed via telephone to the emergency physician at 3:00 a.m. 07/25/2016
[2016-07-25] MEDS ORDERED: ANECTINE IVP STA (03:11)
[2016-07-25] MEDS ORDERED: VERSED IVP STA ×2 (03:11→03:35)
[2016-07-25] MEDS ORDERED: VERSED ONE ×2 (03:12→03:38)
[2016-07-25] MEDS ORDERED: ANECTINE ONE (03:13)
[2016-07-25] MEDS ORDERED: NORCURON IVP STA (03:28)
[2016-07-25] MEDS ORDERED: NITROPRESS IV ONE (03:29)
[2016-07-25] MEDS ORDERED: SUBLIMAZE IVP STA (03:35)
[2016-07-25] MEDS ORDERED: SUBLIMAZE ONE (03:38)
--- NOTE | 2016-07-25 03:44 | DI ---
EXAM: Portable chest HISTORY: Ventilatory support COMPARISON: Single-view chest 07/01/2016 FINDINGS: There is a stable right internal jugular central venous catheter. The heart is normal in size. Atherosclerotic changes are seen involving the aortic arch. Endotracheal tube is in good po sition above the xavier.. Bilateral perihilar infiltrates suggest pulmonary edema versus pneumonia. There is no large pleural effusion. IMPRESSION: Stable cardiac silhouette. Perihilar infiltrates noted bilaterally which may represent pulmonary edema versus pneumonia. Satisfactory appearing right IJ catheter and endotracheal tube
[2016-07-25 03:47] LABS: BASOPHILS # (AUTO) 0.1 K/uL (0-0.2); BASOPHILS % (AUTO) 0.7 % (0.0-3.0); EOSINOPHILS # (AUTO) 0.2 K/ul (0.0-0.7); HEMATOCRIT 38.7 % (37.0-47.0); HEMOGLOBIN 12.7 g/dl (12.0-16.0); IMMATURE GRANULOCYTE % (AUTO) 0.5 % (0.0-5.0); LYMPHOCYTES # (AUTO) 0.8 K/uL (0.60-3.4); LYMPHOCYTES % (AUTO) 6.3 (10.0-50.0); MEAN CORPUSCULAR HEMOGLOBIN 30.4 pg (27.0-31.0); MEAN CORPUSCULAR HGB CONC 32.8 (31.8-35.4); MEAN CORPUSCULAR VOLUME 92.6 fl (81.0-99.0); MONOCYTES # (AUTO) 0.6 K/uL (0.4-2.0); NEUTROPHILS # (AUTO) 10.4 K/ul (2.0-6.9); NEUTROPHILS % (AUTO) 85.5; PLATELET COUNT 243 10^3/uL (140-440); RED BLOOD COUNT 4.18 10^6/ul (4.20-5.40); WHITE BLOOD COUNT 12.18 K/ul (4.6-10.2)
[2016-07-25 03:49] LABS: ABG BASE EXCESS 2 (-2.0-2.0); ABG PCO2 46.3 mmHg (35-45); ABG PH 7.373 (7.35-7.45); ABG TCO2 28 (22.0-28.0)
[2016-07-25] MEDS ORDERED: NITROPRESS 50 MG in DEXTROSE 5%-WATER IV SOLN 248 ML IV SCH (04:00)
[2016-07-25 04:08] LABS: PROTHROMBIN TIME 10.9 SEC (9.3-11.0)
[2016-07-25 04:13] LABS: ALBUMIN 3.7 g/dL (3.4-5.0); ALBUMIN/GLOBULIN RATIO 1.12; ANION GAP 22.5; BILIRUBIN,TOTAL 0.68 mg/dL (0.00-1.20); BUN/CREATININE RATIO 5.2; CALCIUM 9.5 mg/dL (8.2-10.2); POTASSIUM 4.5 mmol/L (3.5-5.10); TROPONIN I 0.031 ng/ml (0.0000-0.4000)
[2016-07-25 04:16] LABS: CREATININE 8.26 mg/dL (0.60-1.30)
== END 2016-07-25 04:05 | disposition short-term general hospital (02) ==
LOC: ED 21:50
DX: I62.9 Nontraumatic intracranial hemorrhage, unspecified (principal); M25.521 Pain in right elbow; I10 Essential (primary) hypertension; M54.9 Dorsalgia, unspecified; I25.10 Atherosclerotic heart disease of native coronary artery without angina pectoris; N18.9 Chronic kidney disease, unspecified; D64.9 Anemia, unspecified; I25.2 Old myocardial infarction; I50.9 Heart failure, unspecified; J44.9 Chronic obstructive pulmonary disease, unspecified; F17.210 Nicotine dependence, cigarettes, uncomplicated; Z91.14 Patient's other noncompliance with medication regimen; Z86.73 Personal history of transient ischemic attack (TIA), and cerebral infarction without residual deficits; Z95.5 Presence of coronary angioplasty implant and graft; Z79.899 Other long term (current) drug therapy
CPT/HCPCS: 36415; 80053; 82550; 82803; 84484; 85025; 85610; 93005; 93010; 94640; 96374; 96375; 99285

== ENCOUNTER 2016-07-25 04:04 | Outpatient (CLI) ==
[2016-07-24 21:56] VITALS: BMI 23.1
== END 2016-07-25 04:05 ==
LOC: AMBL 04:04
PROVIDERS: ATTEND Internal Medicine Geriatric Medicine
DX: I61.9 Nontraumatic intracerebral hemorrhage, unspecified (principal); M25.521 Pain in right elbow; I10 Essential (primary) hypertension; J81.1 Chronic pulmonary edema; R00.0 Tachycardia, unspecified; R06.9 Unspecified abnormalities of breathing; Z91.14 Patient's other noncompliance with medication regimen